=== PATIENT | female | born 1950 | race Caucasian/White ===

== ENCOUNTER → 2017-12-22 | Outpatient (CLI) | payer BC, MEDICARE ==
--- NOTE | 2017-12-22 13:27 | XR ---
Lumbosacral spine history: Left hip pain, pain down left leg 5 views of the lumbosacral spine There is a marked dextroscoliosis centered at L3. Vacuum phenomenon are present at L2-3, L3-4. There is multilevel spondylosis. No evident spondylolysis. Anterolisthesis grade 1 L4-5. Retrolisthesis gra de 1 L1-2. Loss of disc height present at the intervertebral levels. Sclerosis present in the posteri or elements of the lumbar spine. Bone mineralization is reduced. Vascular calcifications noted incide ntally in the aortoiliac distribution. IMPRESSION: Degenerative disc disease, scoliosis, facet arthropathy and spondylolisthesis.
--- NOTE | 2017-12-22 13:28 | XR ---
Left hip HISTORY: Left hip pain, sciatica 2 views of the left hip Some sclerosis present in the sacroiliac joints. Degenerative disc changes noted incidentally noted w ithin the lumbar spine. Bone mineralization is mildly reduced. Joint space, alignment are normal. No significant hypertrophic change in the left hip. IMPRESSION: Osteopenia. Additional findings above.
== END | disposition home or self-care (01) ==
LOC: RADXRYALE 12:56
PROVIDERS: ATTEND Internal Medicine
DX: M85.852 Other specified disorders of bone density and structure, left thigh (principal); M43.16 Spondylolisthesis, lumbar region; M51.36 Other intervertebral disc degeneration, lumbar region; M46.96 Unspecified inflammatory spondylopathy, lumbar region; M41.9 Scoliosis, unspecified
CPT/HCPCS: 72110; 73502

== ENCOUNTER → 2018-03-23 | Outpatient (CLI) | payer MEDICARE ==
[2018-03-23 13:33] VITALS: BP 133/72; PULSE 70; BMI 37.2
--- NOTE | 2018-03-23 14:02 | P.GSHP ---
History of Present Illness H&P Date: 03/23/18 The patient is a 67 year old white female status post a recent mammogram and was told she needed an appointment here. She does not feel any thing in her breast. No nipple discharge or changes. No history of trauma or infection. We do not have results of her mammogram. She has had mammotome biopsy of the right breast twice in the past. This was benign. The patient is status post bilateral mammogram report is obtained from 2017. This report reveals multiple clustered groups of microcalcifications of both breasts not present on prior mammograms from 2013. The patient does have postsurgical changes noted in the right breast. There are groups of calcifications that are indeterminate at this time. Cannot exclude multifocal disease involving the upper outer quadrant of both breasts. Calcifications in the left and right breast may need biopsy for histo logic diagnosis. Since multiple groups of calcifications are noted involving the lateral upper outer quadrant of both breast MRI has been recommended. Depending on results of MRI further recommendation to follow. Family History: 1. mother: lung cancer 2. brother: leukemia 3. paternal aunt: breast cancer at about 50 Hormonal History: menarche: 10 : 3, 2 children first at 34, breast fed no menopause: ANTHONY at 46 BCP: 10 years hormones: 2 years Past Medicl History: 1. Osteoarthritis 2. Diabetes 3. Glaucoma 4. Hypertension 5. High cholesterol 6. Hiatal hernia 7. Duodenal ulcer disease 8. History in the past of migraines Past surgical history: 1. 3 hernias 2. Hysterectomy 3. Fracture right leg Past medical history: Social History: smoke: no alcohol: no drugs: no - Constitutional Constitutional: Reports sweats, Denies chills, Denies fever - EENT Eyes: denies blurred vision, denies pain Ears: bilateral: decreased hearing, tinnitus Ears, nose, mouth and throat: Denies headache, Denies sore throat - Breasts Breasts: bilateral: as per HPI - Cardiovascular Cardiovascular: Reports high blood pressure - Respiratory Respiratory: Denies cough, Denies 7 - Gastrointestinal Comment: yeast infection in groin Gastrointestinal: Denies abdominal pain, Denies diarrhea, Denies nausea, Denies vomiting - Genitourinary (Female) Genitourinary: Denies dysuria, Denies hematuria - Musculoskeletal Comment: arthritis uses a walker and a palma Musculoskeletal: right: knee pain - Integumentary Comment: yeast infection groins Integumentary: Denies pruritus, Denies rash - Neurological Neurological: Denies numbness, Denies weakness - Psychiatric Psychiatric: Denies anxiety, Denies depression - Endocrine Comment: diabetic - Hematologic/Lymphatic Comment: none - Allergic/Immunologic Comment: none Past Medical History Smoking Status: Never smoker Surgical - Exam Vital Signs Pulse BP Pulse Ox 70 133/72 98 03/23/18 13:29 03/23/18 13:29 03/23/18 13:29 - General obese - Eyes normal ocular movement, no icteric - ENT no hearing loss, no congestion - Neck no masses, trachea midline - Respiratory normal respiratory effort, clear to auscultation - Cardiovascular Rhythm: regular Heart Sounds: normal: S1, S2 - Abdomen Abdomen: soft, non tender, no guarding, no rigid, no rebound - Integumentary histurism - Neurologic no disoriented, no combative - Psychiatric oriented to time, oriented to person, oriented to place, speech is normal, memory intact Breast examination: Right breast: Multi-positional exam no dominant masses or nodules of concern, nipple was initially inverted but then came back out again Right axilla: No adenopathy of concern Left breast: Multi-positional exam no dominant masses or nodules of concern Left axilla: No adenopathy of concern Results Impression: 1. Abnormal bilateral breast mammogram 2. Diabetes 3. Arthritis 4. Histurism 5. glaucoma 6. HTN 7. hiatal hernia Plan: 1. MRI of both breast, further recommendation to follow results 2. medical management of medical conditions cc: Dr. Gunn
== END | disposition home or self-care (01) ==
LOC: WWCWWP 13:06
PROVIDERS: ATTEND Surgery
DX: Z53.9 Procedure and treatment not carried out, unspecified reason (principal)

== ENCOUNTER → 2018-03-29 | Outpatient (CLI) | payer MEDICARE ==
--- NOTE | 2018-03-31 07:54 | BMR ---
EXAMINATION TYPE: MR breast BILAT wo/w con DATE OF EXAM: 03/31/2018 COMPARISON: Outside bilateral screening mammogram January 24, 2018 and outside bilateral diagnostic work up February 22, 2018 BI-RADS 4. HISTORY: Abnormal mamm, calcs seen in both breasts upper outer quadrant, no palpable lump, prev benig n biopsy rt breast CONTRAST: Multiplanar, multisequence images of the breasts were acquired utilizing 10 mL intravenous Gadavist g adolinium contrast. TECHNIQUE: A series of fat and water weighted images in the long and short axis views of both breasts are obtained in conjunction with dynamic contrast MRI with subtraction technique. Three-dimensional and additional postprocessing imaging is created on independent workstation and reviewed during offi cial interpretation of this study. FINDINGS: Scattered fibroglandular tissue is noted throughout both breasts. T2-weighted images show a few thin-walled small cysts bilaterally with larger thin-walled cyst noted posteriorly near chest wa ll in both breasts. Delayed images show no suspicious enhancing internal mammary adenopathy bilateral ly. There is moderate fairly symmetric glanular enhancement seen bilaterally There are prominent but subcentimeter benign-appearing lymph nodes in the bilateral axilla With regards to the right breast there is artifact from biopsy clip in the upper aspect. A few small well-defined foci of enhancement are seen bilaterally. Largest enhancing lesion is well-d efined in the upper inner quadrant of the right breast measuring 7 x 6 x 10 mm with dynamic postcontr ast images showing mixed enhancement with areas of uptake and washout. Follow-up advised. No suspicious nonmass-like enhancement is identified in the upper outer quadrants of either breast. N o suspicious skin thickening is seen. The chest wall is intact bilaterally. IMPRESSION: Small enhancing foci bilaterally, would at least advised pursued or sampling of largest m easured lesion in the right breast upper inner quadrant anterior to middle depth. BI-RADS 4 suspicious abnormality right breast. BI-RADS 2 benign findings left breast. Recommendation: Attempted targeted ultrasound follow-up to assess for solid lesion at area of MRI con cern. Negative MRI would not prevent or differ sampling of suspicious group of microcalcifications on mammogram if felt appropriate.
== END | disposition home or self-care (01) ==
LOC: RADMRIMAIN 14:49
PROVIDERS: ATTEND Surgery
DX: R92.8 Other abnormal and inconclusive findings on diagnostic imaging of breast (principal)
CPT/HCPCS: 82565; 36415; 0159T; C8908; A9581; 77059

== ENCOUNTER → 2018-04-07 | Outpatient (CLI) | payer MEDICARE ==
[2018-04-07 09:55] VITALS: BP 162/85; PULSE 81; BMI 37.2
--- NOTE | 2018-04-07 10:38 | P.PN ---
Progress Note - Text Progress Note Date: 04/07/18 The patient is a 67-year-old white female status post a recent mammogram in which she was noted to have multiple areas of calcification in both breasts not present on prior mammograms from 2013. Secondary to these findings it was recommended she undergo bilateral breast MRI. This was performed on . Findings on the MRI revealed small enhancing foci bilaterally and it was advised that the largest which was in the right breast in the upper inner quadrant be sampled if possible via ultrasound-guided core biopsy. Radiographs were reviewed with the radiologist Dr. Bower. After review of the radiographs and the MRI the recommendation was that the patient undergo stereotactic core biopsy of 2 automotive sales representative areas of microcalcifications one in the upper outer quadrant of the right breast and one in the upper quadrant of the left breast. Additionally an ultrasound will be performed of the upper inner quadrant of the right breast and if any lesion of concern is identified it will be sampled via ultrasound-guided core biopsy. Depending on results of this further recommendation to follow. Risks and benefits of the procedure as well as alternatives have been discussed with the patient and her daughter and they wish to proceed. Impression: 1. Mammogram revealed multiple areas of microcalcifications in both breast 2. MRI with enhancing lesions bilaterally the largest in the right breast in the upper inner quadrant area for which attempted ultrasound-guided biopsy is recommended 3. Depending on results of biopsy further recommendation to follow cc: Dr. Gunn
== END ==
LOC: WWCWWP 09:24
PROVIDERS: ATTEND Surgery
DX: Z53.9 Procedure and treatment not carried out, unspecified reason (principal)

== ENCOUNTER → 2018-05-04 | Day surgery (SDC) | payer MEDICARE ==
[2018-05-04 09:48] VITALS: RESP 16; BMI 36.7
--- NOTE | 2018-05-04 11:39 | USB ---
Reason for exam: clinical finding. History: Patient is postmenopausal. Family history of breast cancer in paternal aunt. Benign stereotactic core biopsy of the right breast, November 06, 2001. Benign stereotactic core biopsy of the right breast, October 17, 2000. 2 core biopsies of the right breast. US Breast Limited BILAT Right limited breast ultrasound including focal area of concern, retroareolar and axilla demonstrates a 0.2 x 0.2 x 0.4cm calcifications at 11 o'clock, a 0.4 x 0.3 x 0.2cm calcifications at 11 o'clock, a 0.2 x 0.21 x 0.4cm calcification at 12o'clock, a 0.3 x 0.3 x 0.3cm lesion too small to characterize at 1 o'clock that can be reassessed in 6 months and a 0.3 x 0.3 x 0.3cm lesion too small to characterize at 2 o'clock that can be reassessed in 6 months. Left limited breast ultrasound including focal area of concern, retroareolar and axilla demonstrates a 0.5 x 0.3 x 0.5cm probable lipoma at 2 o'clock at the palpable site. As the nurse reports a firm area, 6 month follow up recommended. These results were verbally communicated with the patient and result sheet given to the patient on 05/04/18. ASSESSMENT: Suspicious, BI-RAD 4 RECOMMENDATION: Stereotactic core biopsy of both breasts.
[2018-05-04 14:54] VITALS: BP 127/85; PULSE 78; TEMP 97.8
--- NOTE | 2018-05-04 16:22 | P.OP ---
Date of Procedure: 05/04/18 Preoperative Diagnosis: Bilateral mammographic microcalcifications of concern, new from prior mammogram most recently which was performed in 2013 Postoperative Diagnosis: same Procedure(s) Performed: Bilateral stereotactic core breast biopsy, 2 areas in the right breast, approximately 1-2 O Clock, upper inner quadrant; and second lesion approximately 10 O Clock, upper outer quadrant. One area in the left breast in the upper-outer quadrant. Anesthesia: local Surgeon: Erika Salazar Estimated Blood Loss (ml): 2 Pathology: other (breast tissue) Condition: stable Disposition: same day Indications for Procedure: The patient is a 67-year-old white female who presented with a mammographic abnormality on outside screening mammograms performed 01/24/2018. Outside bilateral diagnostic workup was performed and the patient was noted to have abnormal calcifications seen in both breasts which were new from her most recent prior mammogram which was in 2013. These were considered BIRADS 4. At our institution the radiographs were reviewed and secondary to the multiple calcifications it was recommended she undergo bilateral breast MRI. The bilateral breast MRI revealed a suspicious abnormality in the right breast consistent with one of the areas of microcalcifications and possibly a small nodule; and benign findings in the left breast. An attempt at targeted ultrasound to evaluate the area of possible nodularity and increased uptake seen on the MRI on the right breast was performed. We could not definitively see this on ultrasound to correspond to the area which was noted on mammogram and MRI. After review with the radiologist it was therefore recommended that the patient undergo bilateral stereotactic biopsy of the breast with 2 areas being sampled in the right breast. Those to be sampled in the right breast included the 1 to 2 o'clock position which was consistent with a area of increased uptake on MRI at the 1 to 2 o'clock position, and the 10 o'clock position, this was felt corresponded to a more lateral area in the upper outer quadrant area of the right breast. In the left breast after review of the mammogram, MRI, and ultrasound it was recommended that she undergo stereotactic core biopsy of calcifications in the upper outer quadrant region of the left breast. The patient was evaluated prior to the procedure. Physical examination did not reveal any dominant masses or nodules of concern in either breast. She was not noted to have any axillary adenopathy of concern on either side. The risks and benefits of the procedure including bleeding, infection, and reaction to the anesthetic and possible inability to sample the correct area or migration of the clip were discussed with the patient. Alternatives which would include watchful waiting or open biopsy were considered but not recommended. The patient agreed to bilateral stereotactic core biopsy. The patient was recommended to have two areas of concern biopsied in the right breast, and one area in the left breast. Operative Findings: Bilateral breast with multiple new microcalcifications, a small area of nodularity not well documented on ultrasound in the right breast; after review with radiology bilateral breast stero-biopsy recommended, with two areas being sampled in the right breast. Description of Procedure: The patient was taken to the stereotactic core biopsy suite. The patient was positioned on a low rad prone biopsy table. The right breast was approached initially. Two areas of concern were to be sampled in the right breast. The first area was identified using a cranial caudal (CC) manufacturing recruiter view. The first area was felt to be at the 1 to 2 o'clock position of the breast. There was an area of small nodularity associated with the area of microcalcifications which was not positively identified on ultrasound, but noted to most likely correlate with an area of increased uptake/suspicion on the MRI. The initial site sampled was in the 1 to 2 o'clock position of the right breast. The approach was a cranial caudal (CC) from above. The skin was prepped using Betadine. One percent lidocaine without epinephrine/but added bicarbonate was used to anesthetize the area of concern. Approximately 10 mL were utilized. The lesion was clearly identified on a manufacturing recruiter film. A stereo pair of the area was obtained. A 9-gauge vacuum-assisted rotating core biopsy needle was driven to the correct coordinates. Pre-fire films were obtained. On these it was noted that the needle was in the correct location and post-fire films were then obtained. The correct location was again confirmed. The 9- gauge vacuum assisted rotating core biopsy needle was used to obtain approximately 12 specimens. Radiograph of the specimen revealed the calcifications of concern had been sampled. A Secure-Roly Top-button buttonhole marker was placed and confirmed to be in the correct location using a stereopair radiograph. There were no immediate post procedure complications related to this. Our target accuracy was felt to be excellent. The biopsy marker was felt to be in the correct location. The specimen will be sent to pathology. The patient tolerated this portion of the procedure in stable condition. The second area on the right breast was then approached. The second area in the right breast was then approached. This was at the 10 o'clock position. The lesion was first identified on a cranial caudal manufacturing recruiter film. Following this a stereo pair was obtained. The approach used was a cranial caudal (CC) from above. Again the skin was prepped using Betadine. One percent lidocaine without epinephrine with addition of bicarbonate was used to anesthetize the area of concern. Approximately 10 mL were utilized. The lesion was clearly identified on the manufacturing recruiter film. A stereo pair was obtained and the needle was driven to the correct coordinates. Pre-fire films were obtained. On these it was noted that the needle was in the correct location and the needle was fired. Post-fire films were then obtained and again the correct location was confirmed. The 9-gauge vacuum-assisted rotating core biopsy needle was used to obtain approximately 12 specimens. Radiograph of the specimen revealed the calcifications of concern had been sampled. A Tri-Roly, bow-tie clip was placed. There were no immediate postoperative complications. The specimen was clearly labeled and sent to pathology. The patient tolerated this portion of the procedure in stable condition. The left breast was approached on the stereotactic core biopsy table. The area of concern in the left breast was located in the upper outer quadrant region. A lateral to medial approach was utilized to sample this area. The area was identified on a manufacturing recruiter film. Following this a stereo pair of the area was obtained. The skin was prepped using Betadine. One percent lidocaine without epinephrine and added bicarbonate was used to anesthetize the area. Approximately 10 mL were utilized. The needle was driven to the correct coordinates. A pre-fire radiograph revealed the needle was in the correct location. The needle was then fired and post-fire radiographs revealed the needle was in the correct location. The sampling needle was a 9-gauge vacuum- assisted rotating core biopsy needle. Approximately 12 specimens were obtained. Radiograph of the specimen revealed the area of concern had been sampled, and contained microcalcifications. A Secure Roly Top-button buttonhole marker was placed. This was confirmed to be in the correct location by obtaining stereo radiographs of the breast. There were no immediate postoperative complications. The patient was given an appointment to follow-up with Dr. Aneudy Oliveros in 1 week. All specimens were clearly labeled and sent to pathology.
--- NOTE | 2018-05-04 16:29 | P.PN ---
Progress Note - Text Progress Note Date: 05/04/18 The patient's case and radiographs have again been reviewed in detail with the radiologist. At this point if the patient's stereotactic core biopsies all come back negative for cancer the recommendation will be repeat bilateral mammogram and ultrasound in 6 months with physician exam at that time. If they come back positive for cancer in the right breast because there were 2 areas of change seen on ultrasound and we were not certain which one we sampled by stereo biopsy we would repeat an ultrasound to see which area we had sampled and if further ultrasound core biopsy would be indicated.
--- NOTE | 2018-05-04 18:35 | MM ---
EXAMINATION TYPE: MG stereo VAD BIOPSY RIGHT BREAST (2 SITES), MG stereo VAD BIOPSY LEFT BREAST (ONE SITE) DATE OF EXAM: 05/04/2018 COMPARISON: Ultrasound today, mammogram 02/22/2018, and MRI 03/29/2018 CLINICAL HISTORY: 67-year-old female abnormal mammogram. Patient with extensive new calcifications as compared to the prior 2013 exam, right greater than left, as well as dominant enhancing lesion medially in the right breast on MRI. Second Look ultrasound shows no corresponding abnormality. TECHNIQUE: Stereotactic guided core biopsy bilateral breasts, 2 sites on the right and one site on the left. FINDINGS: The procedure of stereotactic guided core biopsy was explained to the patient. Benefits, alternatives, and risks were discussed. An informed consent was then obtained. SITE A - RIGHT - UIQ focal asymmetry - The shortness pathway for biopsy was chosen. Shortness pathway was a superior approach. I performed the localization , then surgeon, Dr. Aneudy Oliveros performed the remainder of the procedure. A vacuum assisted biopsy gun was used to obtain multiple core samples. A top- hat Securemark clip was left at the biopsy site. SITE B - RIGHT - 11:00 traffic workforce representative calcifications - The shortness pathway for biopsy was chosen. Shortness pathway was a superior approach. I performed the localization, then surgeon, Dr. Aneudy Oliveros performed the remainder of the procedure. A vacuum assisted biopsy gun was used to obtain multiple core samples. A bowtie Trimark clip was left at the biopsy site. SITE C - LEFT - Lateral traffic workforce representative calcifications - The shortness pathway for biopsy was chosen. Shortness pathway was a lateral approach. I performed the localization, then surgeon, Dr. Aneudy Oliveros performed the remainder of the procedure. A vacuum assisted biopsy gun was used to obtain multiple core samples. A top-hat Securemark clip was left at the biopsy site. The patient tolerated the procedure well without any immediate complication. The patient was kept in the radiology department for short stay after the procedure and then discharged home in stable condition. Targeted calcifications are identified in specimen mammogram. On the right, post biopsy mammogram shows the clips to appear in satisfactory position relative to the targeted areas of concern on the preprocedure images. On the left, there is approximately 2 cm of anterior and lateral clip migration. IMPRESSION: 1. SUCCESSFUL, UNCOMPLICATED STEREOTACTIC GUIDED CORE BIOPSY OF: (A) MEDIAL FOCAL ASYMMETRY RIGHT BREAST (CORRESPONDING TO AN ENHANCING LESION ON MRI), (B) COMMUNITY DEVELOPMENT DIRECTOR RIGHT BREAST CALCIFICATIONS, AND (C) COMMUNITY DEVELOPMENT DIRECTOR LEFT BREAST CALCIFICATIONS. FULL PATHOLOGY RESULTS TO FOLLOW. RECOMMENDATION: 1. Follow-up pathology results. 2. Six-month follow-up right breast ultrasound for reassessment of the too small to characterize 1:00 and 2:00 lesions. 3. Six-month follow-up left breast ultrasound for reassessment of the probable 2 :00 lipoma though the nurse reports that this area is firm on palpation. Pathology Results: Benign A. RIGHT BREAST, SITE A, STEREOTACTIC CORE BIOPSY: Nodular fat necrosis with associated inflammation, fibrosis, histiocytes and calcifications. Negative for malignancy. B. RIGHT BREAST, SITE B, STEREOTACTIC CORE BIOPSY: Nodular fat necrosis with associated calcifications and fibrosis. Negative for malignancy. C. LEFT BREAST, STEREOTACTIC CORE BIOPSY: Fat necrosis with associated inflammation, fibrosis and histiocytes. Background fibrocystic changes including fibrosis and focal apocrine metaplasia. Negative for malignancy. Recommendation Follow up mammogram and ultrasound (ultrasound for attention to the above mentioned findings including a nurse palpated area on the left) of both breasts in 6 months. KEYOND
== END ==
LOC: RADMAMWWP 09:27 → EDSTATUS 10:20
PROVIDERS: ATTEND Surgery
DX: N64.1 Fat necrosis of breast (principal); N60.31 Fibrosclerosis of right breast; N60.32 Fibrosclerosis of left breast; R92.1 Mammographic calcification found on diagnostic imaging of breast; N60.82 Other benign mammary dysplasias of left breast
CPT/HCPCS: 88305; 19081; 19082 ×2; 76642; A4648; J2001

== ENCOUNTER → 2018-05-11 | Outpatient (CLI) | payer MEDICARE ==
[2018-05-11 11:25] VITALS: BP 113/76; PULSE 67; RESP 18; TEMP 98.2; BMI 37.2
--- NOTE | 2018-05-11 11:42 | P.PN ---
Subjective Progress Note Date: 05/11/18 Principal diagnosis: Status post stereotactic core biopsy of both breasts The patient is a 67-year-old white female who is status post her tactic core biopsy of both breasts. This was performed on [id number]. 2 sites were biopsied in the right breast and one in the left. On the right breast she was noted to have nodular fat necrosis associated with inflammation at site a and nodular fat necrosis associated with calcifications and fibrosis at site be. Both were negative for malignancy. At the left breast the patient was noted at fat necrosis with associated inflammation negative for malignancy. The patient states that she has some slight nodularity at the sites of the biopsies. She is not complaining of pain at the breast at this time. No evidence of any infection. No fever or chills. Objective - Vital Signs Vital signs: Vital Signs Temp 98.2 F 05/11/18 11:21 Pulse 67 05/11/18 11:21 Resp 18 05/11/18 11:21 BP 113/76 05/11/18 11:21 Pulse Ox 95 05/11/18 11:21 Intake & Output 05/10/18 05/11/18 05/11/18 18:59 06:59 18:59 Weight 98.43 kg - Exam BMI 37.2 - Constitutional General appearance: Present: obese - EENT Eyes: Present: EOMI ENT: Present: hearing grossly normal - Neck Neck: Present: normal ROM - Respiratory Respiratory: bilateral: CTA - Cardiovascular Rhythm: regular Heart sounds: normal: S1, S2 - Gastrointestinal General gastrointestinal: Present: soft - Integumentary Integumentary Comment(s): Breast examination: Right breast: Puncture sites clean and dry mild ecchymosis small hematomas at the biopsy sites Left breast: Puncture site clean and dry mild ecchymosis small hematoma at the biopsy site Assessment and Plan Assessment: Impression: 1. Status post bilateral breast biopsy via stereotactic core biopsy all findings are benign 2. Degenerative disc disease/arthritis Plan: 1. Repeat bilateral mammogram in 6 months time with physician exam at that time 2. Medical management of medical conditions CC: Dr. Gunn
== END | disposition home or self-care (01) ==
LOC: WWCWWP 10:31
PROVIDERS: ATTEND Surgery
DX: Z53.9 Procedure and treatment not carried out, unspecified reason (principal)

== ENCOUNTER → 2018-10-20 | Outpatient (CLI) | payer MEDICARE ==
--- NOTE | 2018-10-20 11:52 | MM ---
Reason for exam: follow-up at short interval from prior study. Last mammogram was performed 4 years and 10 months ago. History: Patient is postmenopausal. Family history of breast cancer in paternal aunt. Benign MG stereo VAD BX addl LT of the left breast, May 04, 2018. Benign MG stereo VAD BX addl RT of the right breast, May 04, 2018. Benign MG stereo VAD BX RT of the right breast, May 04, 2018. Benign stereotactic core biopsy of the right breast, November 06, 2001. Benign stereotactic core biopsy of the right breast, October 17, 2000. 2 core biopsies of the right breast. Physical Findings: Nurse did not find any significant physical abnormalities on exam. MG 3D Diag Mammo W/Cad KRISTINE Bilateral CC and MLO view(s) were taken. Prior study comparison: January 24, 2018, mammogram. December 14, 2013, bilateral MG screening mammo w CAD. There are scattered fibroglandular densities. No significant new findings when compared with previous films. These results were verbally communicated with the patient and result sheet given to the patient on 10/20/18. ASSESSMENT: Benign, BI-RAD 2 RECOMMENDATION: Routine screening mammogram of both breasts in 6 months. Back on schedule for April 2019.
--- NOTE | 2018-10-20 11:55 | USB ---
Reason for exam: follow-up at short interval from prior study. History: Patient is postmenopausal. Family history of breast cancer in paternal aunt. Benign MG stereo VAD BX addl LT of the left breast, May 04, 2018. Benign MG stereo VAD BX addl RT of the right breast, May 04, 2018. Benign MG stereo VAD BX RT of the right breast, May 04, 2018. Benign stereotactic core biopsy of the right breast, November 06, 2001. Benign stereotactic core biopsy of the right breast, October 17, 2000. 2 core biopsies of the right breast. US Breast BILAT Left complete breast ultrasound includes all four quadrants, the retroareolar region and axilla. Finding demonstrates no cystic or solid lesion seen. Right complete breast ultrasound includes all four quadrants, the retroareolar region and axilla. Finding demonstrates a 0.4 x 0.4 x 0.4cm hypoechoic, calcified lesion at 12 o'clock, a 0.3 x 0.3 x 0.3cm lesion too small to characterize at 1 o'clock, a 0.3 x 0.3 x 0.3cm lesion too small to characterize at 2 o'clock, a 0.5 x 0.3 x 0.3cm lesion too small to characterize at 7 o'clock and calcifications at 11 o'clock. These results were verbally communicated with the patient and result sheet given to the patient on 10/20/18. ASSESSMENT: Benign, BI-RAD 2 RECOMMENDATION: Routine screening mammogram of both breasts in 6 months. Back on schedule for April 2019.
== END | disposition home or self-care (01) ==
LOC: RADUSWWP 09:23
PROVIDERS: ATTEND Surgery
DX: R92.8 Other abnormal and inconclusive findings on diagnostic imaging of breast (principal)
CPT/HCPCS: 77066; 76641; G0279; 77062

== ENCOUNTER → 2018-10-26 | Outpatient (CLI) | payer MEDICARE ==
[2018-10-26 10:00] VITALS: BP 120/79; PULSE 70; RESP 16; TEMP 97.5; BMI 36.7
--- NOTE | 2018-10-26 10:32 | P.PN ---
Subjective Progress Note Date: 10/26/18 Principal diagnosis: 67-year-old white female status post bilateral breast stereotactic core biopsies in April 2018. All 3 sites were consistent with fat necrosis. The patient has had a repeat bilateral mammogram and bilateral ultrasound performed . Findings were felt to be benign and repeat screening of both breast in 6 months time was recommended. On the ultrasound she was noted on the left breast have no cystic or solid lesions, and the right breast she was noted to have a 0.4 cm calcified lesion at 12:00, a 0.3 cm lesion too small to characterize at 1:00, a 0.3 cm lesion too small to characterize at 2:00, and a 0.5 x 0.3 cm lesion too small to characterize at 7:00 and calcifications at 11:00. These were felt to be benign and again repeat bilateral mammogram and ultrasound in 6 months recommended. On her mammogram which was 3-D no significant new findings when compared to prior films benign BIRADS 2. The patient does not complain of any changes in her breast. The patient does not complain of any masses lumps nipple discharge or recent infection or trauma to the breast. Family history: 1. Mother: Lung cancer 2: Brother: Leukemia 3: Paternal aunt: Breast cancer at about 50 Past medical history: Osteoarthritis Diabetes Glaucoma Hypertension High cholesterol Hiatal hernia Duodenal ulcer disease Past history of migraines Past surgical history: 1. 3 hernias 2. Hysterectomy 3. Fracture right leg Social history: Smoke: Negative Alcohol: Negative Drugs: Negative Review of systems: HEENT: Tinnitus, wears glasses Lungs: Negative Heart: Congestive heart failure GI: Ulcer disease : Negative Musculoskeletal: Arthritis Psychiatric: Negative Objective - Vital Signs Vital signs: Vital Signs Temp 97.5 F L 10/26/18 09:55 Pulse 70 10/26/18 09:55 Resp 16 10/26/18 09:55 BP 120/79 10/26/18 09:55 Pulse Ox 94 L 10/26/18 09:55 Intake & Output 10/25/18 10/26/18 10/26/18 18:59 06:59 18:59 Weight 97.069 kg - Exam BMI 36.7 - Constitutional Constitutional Comment(s): hirsturism General appearance: Present: obese - EENT Eyes: Present: EOMI ENT: Present: hearing grossly normal - Neck Neck: Present: normal ROM - Respiratory Respiratory: bilateral: CTA - Cardiovascular Rhythm: regular Heart sounds: normal: S1, S2 - Gastrointestinal General gastrointestinal: Present: soft - Integumentary Integumentary Comment(s): hirstuism Integumentary: Present: normal turgor - Musculoskeletal Musculoskeletal Comment(s): uses a walker - Additional findings Additional findings: Breast examination: Right breast: Multi-positional exam fibrocystic changes, no dominant masses or nodules of concern Right axilla: No adenopathy of concern Left breast: Multiple positional exam no dominant masses or nodules of concern Left axilla: No adenopathy of concern Assessment and Plan Assessment: impression: 1. Fibrocystic changes in the breast 2. Ultrasound changes in the right breast 3. family history of cancer 4. obesity 5. arthritis in back 6. HTN 7. diabetes 8. hirstusm 9. no evidence of any breast cancer at this time 10. glaucoma Plan: 1. Repeat bilateral mammogram and ultrasound in 6 months with physician exam at that time 2. Medical management of medical conditions 3. We have discussed the hirstuism and an at this time the patient is interested in any further workup Cc: Dr. Gunn
== END | disposition home or self-care (01) ==
LOC: WWCWWP 09:23
PROVIDERS: ATTEND Surgery
DX: Z53.9 Procedure and treatment not carried out, unspecified reason (principal)

== ENCOUNTER → 2019-04-30 | Outpatient (CLI) | payer MEDICARE ==
--- NOTE | 2019-04-30 09:54 | MM ---
Reason for exam: follow-up at short interval from prior study. Last mammogram was performed 6 months ago. History: Patient is postmenopausal. Family history of breast cancer in paternal aunt. Benign MG stereo VAD BX addl LT of the left breast, May 04, 2018. Benign MG stereo VAD BX addl RT of the right breast, May 04, 2018. Benign MG stereo VAD BX RT of the right breast, May 04, 2018. Benign stereotactic core biopsy of the right breast, November 06, 2001. Benign stereotactic core biopsy of the right breast, October 17, 2000. 2 core biopsies of the right breast. Physical Findings: Nurse did not find any significant physical abnormalities on exam. MG 3D Diag Mammo W/Cad KRISTINE Bilateral CC and MLO view(s) were taken. Prior study comparison: October 20, 2018, bilateral MG 3d diag mammo w/cad KRISTINE. January 24, 2018, mammogram. The breast tissue is heterogeneously dense. This may lower the sensitivity of mammography. There are two oval circumscribed anterior depth left upper outer quadrant masses, both 4mm. Ultrasound will be performed. Benign appearing bilateral calcifications. Post biopsy change on right x 2, both improved. These results were verbally communicated with the patient and result sheet given to the patient on 04/30/19. ASSESSMENT: Incomplete: need additional imaging evaluation, BI-RAD 0 RECOMMENDATION: Ultrasound of both breasts. (left upper outer quadrant, right 12-7 o'clock follow up)
--- NOTE | 2019-04-30 09:58 | USB ---
Reason for exam: additional evaluation requested from prior study. History: Patient is postmenopausal. Family history of breast cancer in paternal aunt. Benign MG stereo VAD BX addl LT of the left breast, May 04, 2018. Benign MG stereo VAD BX addl RT of the right breast, May 04, 2018. Benign MG stereo VAD BX RT of the right breast, May 04, 2018. Benign stereotactic core biopsy of the right breast, November 06, 2001. Benign stereotactic core biopsy of the right breast, October 17, 2000. 2 core biopsies of the right breast. US Breast Limited BILAT Right limited breast ultrasound including focal area of concern, retroareolar and axilla demonstrates a 0.4 x 0.2 x 0.4cm oval, hypoechoic, calcified, benign lesion at 12 o'clock and a 0.2 x 0.4 x 0.3cm oval lesion too small to characterize at 2 o'clock, cystic prior at 1 o'clock measured 0.3 x 0.3 x 0.3cm. Left limited breast ultrasound including focal area of concern, retroareolar and axilla demonstrates ductal ectasia corresponds to mammographic findings. These results were verbally communicated with the patient and result sheet given to the patient on 04/30/19. ASSESSMENT: Benign, BI-RAD 2 RECOMMENDATION: Routine screening mammogram of both breasts in 1 year.
== END | disposition home or self-care (01) ==
LOC: RADMAMWWP 07:27
PROVIDERS: ATTEND Surgery
DX: R92.8 Other abnormal and inconclusive findings on diagnostic imaging of breast (principal)
CPT/HCPCS: 77066; 76642; G0279; 77062

== ENCOUNTER → 2019-05-18 | Outpatient (CLI) | payer MEDICARE ==
[2019-05-18 10:58] VITALS: BP 137/91; RESP 18; TEMP 97.8; BMI 36.2
--- NOTE | 2019-05-18 11:34 | P.PN ---
Subjective Progress Note Date: 05/18/19 67-year-old white female status post bilateral breast stereotactic core biopsies in April 2018. All 3 sites were consistent with fat necrosis. The patient has had a repeat bilateral mammogram and bilateral ultrasound performed on. Findings were felt to be benign and repeat screening of both breast in 6 months time was recommended. The patient is not complaining of any masses pain lungs are nodules in her breast. She had a bilateral mammogram performed on [id number]. This revealed to have a circumscribed anterior depth left upper outer quadrant masses. An ultrasound was performed of both breast on the same date. Ultrasound revealed cystic lesions in the right breast no lesions of concern in the left breast and repeat bilateral mammogram in 1 year was recommended. Drinks caffeine daily in the form of diet Pepsi. She does not smoke, she is exposed to secondhand smoke. She does not eat much chocolate. Family History: 1. Mother: Lung cancer 2: Brother: Leukemia 3: Paternal aunt: Breast cancer at about 50 4. maternal grandfather: stomach cancer 5. paternal grandfather: stomach cancer Past medical history: Osteoarthritis Diabetes Glaucoma Hypertension High cholesterol Hiatal hernia Duodenal ulcer disease Past history of migraines Past surgical history: 1. 3 hernias 2. Hysterectomy 3. Fracture right leg 4. chips removed left ankle Social history: Smoke: Negative Alcohol: Negative Drugs: Negative Review of systems: HEENT: Tinnitus, wears glasses Lungs: Negative Heart: Congestive heart failure GI: Ulcer disease : Negative Musculoskeletal: Arthritis neuroogic: right leg weak Psychiatric: Negative hematologic: baby aspirin Objective - Vital Signs Vital signs: Vital Signs Temp 97.8 F 05/18/19 10:55 Pulse Resp 18 05/18/19 10:55 BP 137/91 05/18/19 10:55 Pulse Ox 95 05/18/19 10:55 Intake & Output 05/17/19 05/18/19 05/18/19 18:59 06:59 18:59 Weight 95.708 kg - Exam BMI 36.2 - Constitutional General appearance: Present: obese - EENT Eyes: Present: EOMI ENT: Present: hearing grossly normal - Neck Details: no adenopathy of concern Neck: Present: normal ROM - Respiratory Details: normal effort Respiratory: bilateral: CTA - Cardiovascular Rhythm: regular Heart sounds: normal: S1, S2 - Gastrointestinal Gastrointestinal Comment(s): no organomegaly liver/spleen not enlarged bowel sounds normal General gastrointestinal: Present: soft - Integumentary Integumentary Comment(s): Scars right breast well-healed from prior biopsy Integumentary: Present: normal turgor - Musculoskeletal Musculoskeletal Comment(s): kyphosis, affecting gait, uses a walker - Psychiatric Psychiatric: Present: A&O x's 3, appropriate affect, intact judgment & insight - Additional findings Additional findings: Breast examination: Right breast: Ptotic, fibrocystic changes, no dominant masses or nodules of concern, nipple intermittently inverts Right axilla: No adenopathy of concern Left breast: exam no dominant masses or nodules of concern, fibrocystic changes, nipple no pathology noted discharge Left axilla: No adenopathy of concern Assessment and Plan Assessment: Impression: 1. Fibrocystic changes bilateral breast/ drinks caffeine and is exposed to secondhand smoke 2. Abnormal mammogram resulting in ultrasound 3. Family history of cancer 4. Arthritis and back causing difficulty with ambulation, and limiting ability to do examination 5. Hypertension 6. Diabetes 7. No evidence of any breast cancer at this time 8. BMI 36.2 9. right breast nipple inversion 10. Nodular fat necrosis" biopsies on [id number] Plan: 1. Patient to follow right nipple inversion if this becomes persistent and she should call us sooner 2. Bilateral mammogram in 1 year 3. counselled on affects of nicotine, caffeine, and theophylline on fibrocystic disease We have discussed the causes of nipple inversion and what the patient should watch for. Cc: Dr. Gunn
== END | disposition home or self-care (01) ==
LOC: WWCWWP 09:44
PROVIDERS: ATTEND Surgery
DX: Z53.9 Procedure and treatment not carried out, unspecified reason (principal)

== ENCOUNTER → 2019-12-25 | Outpatient (CLI) | payer MEDICARE ==
[2019-12-25 10:30] LABS: Basophils % (A) 1 %; Eosinophils # (A) 0.1 k/uL (0-0.7); Eosinophils % (A) 2 %; HCT 42.9 % (34.0-46.0); HGB 13.2 gm/dL (11.4-16.0); Lymphocytes # (A) 1.1 k/uL (1.0-4.8); Lymphocytes % (A) 21 %; MCH 30.2 pg (25.0-35.0); MCHC 30.8 g/dL (31.0-37.0); MCV 98.2 fL (80.0-100.0); Mean Platelet Volume 7.6; Monocytes # (A) 0.3 k/uL (0-1.0); Monocytes % (A) 5 %; Neutrophils # (A) 3.6 k/uL (1.3-7.7); Neutrophils % (A) 68 %; Platelet Count 287 k/uL (150-450); RBC 4.36 m/uL (3.80-5.40); RDW 14.3 % (11.5-15.5); WBC 5.3 k/uL (3.8-10.6)
[2019-12-25 10:47] LABS: Appearance,Urine Clear (Clear); Bilirubin,Urine Negative (Negative); Blood,Urine Negative (Negative); Color,Urine Yellow; Glucose,Urine (UA) Negative (Negative); Ketones,Urine Negative (Negative); Leukocyte Esterase,Urine Negative (Negative); Nitrite,Urine Negative (Negative); PH, Urine 7.5 (5.0-8.0); Protein,Urine Trace (Negative); Specific Gravity,Urine 1.015 (1.001-1.035); Urobilinogen,Urine <2.0 mg/dL (<2.0)
[2019-12-25 10:56] LABS: Partial Thromboplastin Time 22.6 sec (22.0-30.0)
[2019-12-25 10:57] LABS: African American GFR (CKD) >90 (>60 ml/min/1.73 sqM); Anion Gap 8 mmol/L; Blood Urea Nitrogen 10 mg/dL (7-17); Carbon Dioxide 25 mmol/L (22-30); Chloride 105 mmol/L (98-107); Glucose 147 mg/dL (74-99); Non-African American GFR(CKD) 87 (>60 ml/min/1.73 sqM); Potassium 4.4 mmol/L (3.5-5.1); Sodium 138 mmol/L (137-145)
--- NOTE | 2019-12-25 14:36 | XR ---
EXAMINATION TYPE: XR chest 2V DATE OF EXAM: 12/25/2019 COMPARISON: Prior chest CT from outside institution 12/12/2019 and chest x-ray 11/28/2019 from outside institution HISTORY: Presurgical testing TECHNIQUE: Frontal and lateral views of the chest are obtained. FINDINGS: Blunting of the right costophrenic angle, increased attenuation at the right lung base is a stable finding compared to CT, there may be loculated fluid, there is associated atelectatic change . The heart is borderline enlarged. Prominence of the pulmonary artery may be indicative of pulmonary artery hypertension. Aorta is dense. There are old healed left-sided rib fractures. IMPRESSION: Findings are similar to chest CT, possible loculated effusion, atelectasis, findings imp roved compared to prior chest x-ray. Borderline heart size, possible pulmonary artery hypertension.
== END | disposition home or self-care (01) ==
LOC: LABPAT 08:57
PROVIDERS: ATTEND Thoracic Surgery (Cardiothoracic Vascular Surgery)
DX: Z01.818 Encounter for other preprocedural examination (principal); E11.9 Type 2 diabetes mellitus without complications; J94.8 Other specified pleural conditions; Z51.81 Encounter for therapeutic drug level monitoring; Z79.01 Long term (current) use of anticoagulants; R35.0 Frequency of micturition
CPT/HCPCS: 36415; 71046; 80051; 81003; 82565; 82947; 84520; 85025; 85610; 85730; 87077; 87086; 87186; 93005

== ENCOUNTER 2019-12-27 07:31 | Inpatient (IN) | payer MEDICARE ==
[2019-12-25 14:35] VITALS: BMI 37.8
[~2019-12-27 07:31] MED LIST: DEXAMETHASONE SOD PHOSPHATE 10 MG/ML 1 ML VIAL IV ONE; LACTATED RINGERS 1,000 ML IV SCH; ONDANSETRON 4 MG/2 ML VIAL IVP ONE
[2019-12-27 08:19] LABS: Glucose,Whole Blood 152 mg/dL (75-99)
[2019-12-27] MEDS ORDERED: MIDAZOLAM 2 MG/2 ML VIAL IVP ONE (09:00)
--- NOTE | 2019-12-27 09:20 | P.CNPUL ---
History of Present Illness Consult date: 12/27/19 Reason for consult: dyspnea, chest pain, pleural effusion Chief complaint: Ongoing shortness of breath History of present illness: Patient is a 69-year-old well-known to me with a remote history of smoking in the past patient was admitted initially at [facility] with the finding suggestive of the pneumonia along with large parapneumonic effusion on the right side, patient had the thoracentesis is an 2 L of fluid were removed, with appearance of hemorrhagic fluid, pleural fluid was exudative with negative cytology cultures were negative, subsequent ultrasound of the chest postthoracentesis revealed loculation on the right side bends moderate residual pleural effusion, patient other significant lab was elevated CEA 125, but she is status post total abdominal hysterectomy, due to loculated fluid on the light side had a high index of suspicion for neoplastic process patient is scheduled for thoracoscopic pleural biopsy with VATS procedure and lysis of loculation on the right side with removal of residual fluid Review of Systems All systems: negative Past Medical History Past Medical History: Heart Failure, Diabetes Mellitus, Hyperlipidemia, Hypertension, Osteoarthritis (OA) Additional Past Medical History / Comment(s): Glaucoma, History of Any Multi-Drug Resistant Organisms: None Reported Past Surgical History: Bladder Surgery, Hernia Repair, Hysterectomy Additional Past Surgical History / Comment(s): INCISIONAL HERNIA , INGUINAL HERNIA X2 Past Anesthesia/Blood Transfusion Reactions: No Reported Reaction Past Psychological History: No Psychological Hx Reported Smoking Status: Never smoker Past Alcohol Use History: None Reported Past Drug Use History: None Reported - Past Family History Mother Family Medical History: Cancer Additional Family Medical History / Comment(s): LUNG CANCER Brother(s) Family Medical History: Cancer Medications and Allergies Home Medications Medication Instructions Recorded Confirmed Type Aspirin [Adult Low Dose Aspirin EC] 81 mg PO DAILY 03/23/18 12/25/19 History Furosemide [Lasix] 40 mg PO DAILY 03/23/18 12/25/19 History Latanoprost/Pf [Latanoprost 0.005% 1 drop BOTH EYES HS 03/23/18 12/25/19 History Eye Drop] Potassium Chloride [Klor-Con 10] 10 meq PO BID 03/23/18 12/25/19 History Simvastatin 40 mg PO 1800 03/23/18 12/25/19 History Ryne/D3/Mag11/Zinc/Milking Machine Technician/Andrea/Bor 1 each PO DAILY 10/26/18 12/25/19 History [Caltrate 600+D Plus Tablet] Cholecalciferol [Vitamin D3] 1,000 unit PO DAILY 10/26/18 12/25/19 History Metoprolol Succinate (ER) [Toprol 50 mg PO DAILY 12/25/19 12/25/19 History Xl] Vit C/E/Zn/Coppr/Lutein/Zeaxan 1 each PO DAILY 12/25/19 12/25/19 History [Preservision Areds 2 Softgel] Liraglutide [Victoza 2-Kamlesh] 1.8 mg SQ DAILY 12/26/19 12/26/19 History Allergies Allergy/AdvReac Type Severity Reaction Status Date / Time adhesive tape Allergy Rash/Hives Verified 12/25/19 12:50 Physical Exam Vitals: Vital Signs Temp Pulse Resp BP BP Pulse Ox 12/27/19 08:10 163/77 12/27/19 08:05 97.5 F L 88 20 210/106 92 L Intake and Output 12/26/19 12/27/19 12/27/19 22:59 06:59 14:59 Other: Weight 100 kg - Constitutional General appearance: disheveled, obese - EENT Eyes: PERRLA ENT: normal oropharynx Ears: bilateral: normal - Neck Neck: normal ROM Carotids: bilateral: upstroke normal Thyroid: bilateral: normal size - Respiratory Respiratory: right: diminished (Right base) - Cardiovascular Rhythm: regular Heart sounds: normal: S1, S2 - Gastrointestinal General gastrointestinal: normal bowel sounds - Neurologic Neurologic: CNII-XII intact - Musculoskeletal Musculoskeletal: gait normal, generalized weakness, strength equal bilaterally - Psychiatric Psychiatric: A&O x's 3, appropriate affect, intact judgment & insight Chronic lower extremity +1 edema Results - Laboratory Findings Abnormal lab findings: Abnormal Labs 12/27/19 08:15 POC Glucose (mg/dL) 152 H Assessment and Plan Assessment: Right-sided exudative pleural effusion hemorrhagic Right-sided loculation with loculated fluid Possible neoplasm primary versus secondary Elevated CA 125 Status post total abdominal hysterectomy Plan: Patient admitted for VATS lysis of bands and adhesions with pleural biopsy and drainage of residual pleural fluid Time with Patient: Greater than 30
[2019-12-27] MEDS ORDERED: PROPOFOL 10 MG/ML 20 ML VIAL IV ONE (09:34)
[2019-12-27] MEDS ORDERED: GLYCOPYRROLATE 0.2 MG/ML 2 ML VIAL ONE (09:34)
[2019-12-27] MEDS ORDERED: WATER FOR INJECTION, STERILE 10 ML VIAL IV ONE (09:34)
[2019-12-27] MEDS ORDERED: MIDAZOLAM 2 MG/2 ML VIAL ONE (09:34)
[2019-12-27] MEDS ORDERED: LIDOCAINE 1% INJ 10MG/ML (20 ML MDV) ONE (09:34)
[2019-12-27] MEDS ORDERED: NEOSTIGMINE 1 MG/ML 10 ML VIAL ONE (09:34)
[2019-12-27] MEDS ORDERED: SUCCINYLCHOLINE CHLORIDE 100 MG/5 ML SYR IV ONE (09:34)
[2019-12-27] MEDS ORDERED: ROCURONIUM BROMIDE 10 MG/ML 5 ML VIAL IV ONE (09:34)
[2019-12-27] MEDS ORDERED: fentaNYL (PF) 50 MCG/ML 2 ML AMP ONE (09:34)
[2019-12-27] MEDS ORDERED: ePHEDrine SULFATE/0.9% NACL/PF 50 MG/5 ML SYRINGE IV ONE (09:34)
[2019-12-27] MEDS ORDERED: BUPIVACAINE (PF) 0.5% 30 ML VIAL SQ ONE (10:06)
--- NOTE | 2019-12-27 10:40 | P.OP ---
Date of Procedure: 12/27/19 Preoperative Diagnosis: Persistent right posterior pleural effusion Postoperative Diagnosis: Same, loculated Procedure(s) Performed: Right thoracoscopic partial decortication Anesthesia: IRINAA Surgeon: Devonte Galaviz Estimated Blood Loss (ml): 10 IV fluids (ml): 800 Urine output (ml): 100 Pathology: other (Right pleural fluid, right pleural content both sent for cultures as well as pathology/cytology) Condition: stable Disposition: PACU Indications for Procedure: 69-year-old female with prior thoracentesis of a right pleural effusion. She never had complete reexpansion of the right lung. She has persistent loculated right posterior pleural effusion. Cytology initial initially was negative and the fluid was bloody. She was referred for evaluation. She is symptomatic with shortness of breath. Operative Findings: Right pleural space was fused with relatively filmy adhesions. There was a loculated right posterior basilar collection with a large amount of semisolid cottage cheeselike material present. There was also some tissue present which appeared to be old hematoma. Fluid was bloody. Localized complete decortication was accomplished. Description of Procedure: The patient was brought to the operating room, placed supine on the operating table, anesthetized and intubated with a double-lumen endotracheal tube. The endotracheal tube was positioned with bronchoscopic guidance. No endobronchial lesions were noted. Patient was turned in the left lateral decubitus position and the right chest was sterilely prepped and draped. 2 one-inch incisions were made fairly low at about the eighth or ninth interspace. One was in the midaxillary line and one was more posterior. Finger was inserted through the initial incision and loculations were broken up posteriorly. Fluid was suctioned out and collected. The thoracoscope was placed and we took down adhesions bluntly. The cottage cheeselike material was peeled off both the surface of the lung and the chest wall. On completion of the dissection the area was irrigated out with 100 mL of saline. A 28-Greenlandic chest tube was placed through separate stab incision and disposition posterior basally. Was connected to a Pleur-evac. Rib blocks were performed at the level of the incision. Half percent Marcaine was used. The lung was reinflated under thoracoscopic visualization. The incisions were closed with layers of Vicryl suture. Skin glue and dry sterile dressings were applied. Patient was turned supine and extubated and transferred to recovery in stable condition.
[2019-12-27] MEDS ORDERED: SODIUM CHLORIDE 0.9% 1,000 ML IV SCH (10:45)
[2019-12-27] MEDS: HYDROmorphone 0.5 MG/0.5 ML SYRINGE IVP PRN ×3 (11:20→13:27)
[2019-12-27 11:25] LABS: Glucose,Whole Blood 130 mg/dL (75-99)
--- NOTE | 2019-12-27 11:43 | XR ---
EXAMINATION TYPE: XR chest 1V portable DATE OF EXAM: 12/27/2019 COMPARISON: 12/25/2019 HISTORY: Shortness of breath TECHNIQUE: Single frontal view of the chest is obtained. FINDINGS: Bilateral consolidation and small right effusion with suggestion of an overlying chest tub e. No pneumothorax. Heart size stable. Atherosclerotic change aorta. Diffuse osteopenia and arthropat hy of the shoulders. Chronic rib cage deformity noted. IMPRESSION: 1. Stable right-sided consolidation and small effusion. 2. Stable left lower lobe infiltrate.
[2019-12-27] MEDS ORDERED: LACTATED RINGERS 1,000 ML IV ONE (12:35)
[2019-12-27 14:23] LABS: Appearance,BF Bloody; Color,BF Red; Nucleated Cells, Body Fluid 400 /uL; RBC, Body Fluid 853000 /uL
[2019-12-27 14:42] LABS: Mononuclear WBC,Body Fluid 89 %; Polynuclear WBC,Body Fluid 11 %; Total Cells Counted,Body Fluid 100
[2019-12-27] MEDS ORDERED: ACETAMINOPHEN TAB 500 MG TAB PO PRN (15:04)
[2019-12-27] MEDS ORDERED: IPRATROPIUM-ALBUTEROL 3 ML NEB IH PRN (15:04)
[2019-12-27] MEDS ORDERED: ONDANSETRON 4 MG/2 ML VIAL IVP PRN (15:04)
[2019-12-27] MEDS: HEPARIN SODIUM,PORCINE 5,000 UNIT/ML 1 ML VIAL SQ SCH ×2 (15:13→22:56)
[2019-12-27] MEDS: KETOROLAC 30 MG/ML 1 ML VIAL IVP SCH ×2 (15:13→22:57)
[2019-12-27 16:58] LABS: Glucose,Whole Blood 139 mg/dL (75-99)
--- NOTE | 2019-12-27 17:15 | P.CONS ---
History of Present Illness - Reason for Consult Pleural effusion - History of Present Illness 69-year-old pleasant female well-known to me from previous hospital admission at [facility] where she presented with right-sided pleural effusion, which was initially believed to be parapneumonic effusion's patient had 2 L of for fluid removed which was found to be exudative although cytology is negative for any cancer. Patient had post thoracentesis loculation. There was high suspicion of malignancy although there is no malignancy was admitted in all the imaging that was done including chest and abdominal CAT scans. Her CA-125 was elevated patient had history of hysterectomy. Patient was subsequently followed by robot programmer and cardiovascular thoracic surgery as an outpatient and elective VATS procedure was scheduled and patient underwent VATS procedure additional lysis biopsies were obtained and patient was subsequently admitted for observation on the medical floor. Patient is clinically doing well has significant pain in the surgical site area. Review of Systems REVIEW OF SYSTEMS: CONSTITUTIONAL: No fever, no malaise, no fatigue. HEENT: No recent visual problems or hearing problems. Denied any sore throat. CARDIOVASCULAR: No orthopnea, PND, no palpitations, no syncope. PULMONARY: No shortness of breath, no cough, no hemoptysis. GASTROINTESTINAL: No diarrhea, no nausea, no vomiting, no abdominal pain. NEUROLOGICAL: No headaches, no weakness, no numbness. HEMATOLOGICAL: Denies any bleeding or petechiae. GENITOURINARY: Denies any burning micturition, frequency, or urgency. MUSCULOSKELETAL/RHEUMATOLOGICAL: Denies any joint pain, swelling, or any muscle pain. ENDOCRINE: Denies any polyuria or polydipsia. The rest of the 14-point review of systems is negative. Past Medical History Past Medical History: Heart Failure, Diabetes Mellitus, Hyperlipidemia, Hypertension, Osteoarthritis (OA) Additional Past Medical History / Comment(s): Glaucoma, History of Any Multi-Drug Resistant Organisms: None Reported Past Surgical History: Bladder Surgery, Hernia Repair, Hysterectomy Additional Past Surgical History / Comment(s): INCISIONAL HERNIA , INGUINAL HERNIA X2 Past Anesthesia/Blood Transfusion Reactions: No Reported Reaction Past Psychological History: No Psychological Hx Reported Smoking Status: Never smoker Past Alcohol Use History: None Reported Past Drug Use History: None Reported - Past Family History Mother Family Medical History: Cancer Additional Family Medical History / Comment(s): LUNG CANCER Brother(s) Family Medical History: Cancer Medications and Allergies Home Medications Medication Instructions Recorded Confirmed Type Aspirin [Adult Low Dose Aspirin EC] 81 mg PO DAILY 03/23/18 12/25/19 History Furosemide [Lasix] 40 mg PO DAILY 03/23/18 12/25/19 History Latanoprost/Pf [Latanoprost 0.005% 1 drop BOTH EYES HS 03/23/18 12/25/19 History Eye Drop] Potassium Chloride [Klor-Con 10] 10 meq PO BID 03/23/18 12/25/19 History Simvastatin 40 mg PO 1800 03/23/18 12/25/19 History Ryne/D3/Mag11/Zinc/Senior Safety Management Consultant/Andrea/Bor 1 each PO DAILY 10/26/18 12/25/19 History [Caltrate 600+D Plus Tablet] Cholecalciferol [Vitamin D3] 1,000 unit PO DAILY 10/26/18 12/25/19 History Metoprolol Succinate (ER) [Toprol 50 mg PO DAILY 12/25/19 12/25/19 History Xl] Vit C/E/Zn/Coppr/Lutein/Zeaxan 1 each PO DAILY 12/25/19 12/25/19 History [Preservision Areds 2 Softgel] Liraglutide [Victoza 2-Kamlesh] 1.8 mg SQ DAILY 12/26/19 12/26/19 History Allergies Allergy/AdvReac Type Severity Reaction Status Date / Time adhesive tape Allergy Rash/Hives Verified 12/25/19 12:50 Physical Exam Vitals: Vital Signs Temp Pulse Pulse Pulse Resp BP BP 12/27/19 15:00 97.7 F 74 18 12/27/19 14:30 79 16 12/27/19 14:00 81 16 12/27/19 13:30 57 L 16 12/27/19 13:00 50 L 16 12/27/19 12:32 57 L 18 12/27/19 12:30 56 L 18 12/27/19 12:00 51 L 16 12/27/19 11:45 59 L 16 12/27/19 11:30 73 16 12/27/19 11:15 71 16 12/27/19 11:00 76 16 12/27/19 10:58 96.8 F L 79 16 12/27/19 08:10 163/77 12/27/19 08:05 97.5 F L 88 20 210/106 BP Pulse Ox 12/27/19 15:00 161/88 95 12/27/19 14:30 149/72 97 12/27/19 14:00 162/72 97 12/27/19 13:30 149/72 97 12/27/19 13:00 145/71 97 12/27/19 12:32 153/71 96 12/27/19 12:30 149/70 96 12/27/19 12:00 161/68 96 12/27/19 11:45 142/80 98 12/27/19 11:30 147/81 99 12/27/19 11:15 142/84 99 12/27/19 11:00 144/81 100 12/27/19 10:58 132/82 98 12/27/19 08:10 12/27/19 08:05 92 L Intake and Output 12/27/19 12/27/19 12/27/19 06:59 14:59 22:59 Intake Total 1350 Output Total 410 Balance 940 Intake: IV 1350 Output: Urine 300 Pleural Fluid 100 Estimated Blood Loss 10 Other: Weight 100 kg PHYSICAL EXAMINATION: GENERAL: The patient is alert and oriented x3, not in any acute distress. Well developed, well nourished. HEENT: Pupils are round and equally reacting to light. EOMI. No scleral icterus. No conjunctival pallor. Normocephalic, atraumatic. No pharyngeal erythema. No thyromegaly. CARDIOVASCULAR: S1 and S2 present. No murmurs, rubs, or gallops. PULMONARY: Chest is clear to auscultation, no wheezing or crackles. ABDOMEN: Soft, nontender, nondistended, normoactive bowel sounds. No palpable organomegaly. MUSCULOSKELETAL: No joint swelling or deformity. EXTREMITIES: No cyanosis, clubbing, or pedal edema. NEUROLOGICAL: Gross neurological examination did not reveal any focal deficits. SKIN: No rashes. Results Labs: Abnormal Lab Results - Last 24 Hours (Table) 12/27/19 12/27/19 12/27/19 Range/Units 08:15 11:23 16:56 POC Glucose (mg/dL) 152 H 130 H 139 H (75-99) mg/dL Microbiology - Last 24 Hours (Table) 12/27/19 10:34 Fungal Culture - Preliminary Pleural Fluid 12/27/19 10:34 Acid Fast Bacilli Culture - Preliminary Pleural Fluid 12/27/19 10:34 Anaerobic Culture - Preliminary Pleural Fluid 12/27/19 10:34 Body Fluid Culture - Preliminary Pleural Fluid 12/27/19 10:34 Tissue Culture - Preliminary Pleural Fluid 12/27/19 10:34 Anaerobic Culture - Preliminary Pleural Fluid Assessment and Plan Plan: - loculated right-sided exudative pleural effusion: Status post thoracentesis with removal of loculations and bloody fluid. Patient is on 2 L for comfort she may not require that the patient doesn't have any history of congestive heart failure she was sent the him on Lasix during her previous hospital because of the pleural effusion patient may not benefit from this Lasix which will be discontinued patient is presently receiving IV fluids at 50 mL/h -Hypertension -Hyperlipidemia -Type 2 diabetes mellitus: Patient will be 10 units sliding scale insulin patient is on Victoza at home which can be resumed upon discharge Gastroesophageal reflux disease For above-mentioned chronic medical problems patient will be resumed on appropriate home medications
[2019-12-27] MEDS: INSULIN ASPART (NovoLOG) 100 UNIT/ML VIAL SQ SCH ×3 (17:42→21:16)
[2019-12-27] MEDS: ATORVASTATIN 20 MG TAB PO SCH (17:42)
[2019-12-27] MEDS: POTASSIUM CHLORIDE ER 10 MEQ TAB.ER.PRT PO SCH (19:55)
[2019-12-27] MEDS: LATANOPROST 0.005% OPHTH DROPS 2.5 ML BTL BOTH EYES SCH (19:55)
[2019-12-27 20:28] LABS: Glucose,Whole Blood 149 mg/dL (75-99)
[2019-12-28] MEDS: traMADol 50 MG TAB PO PRN (04:21)
[2019-12-28] MEDS: PANTOPRAZOLE 40 MG TABLET PO SCH ×2 (05:59→08:46)
[2019-12-28] MEDS: KETOROLAC 30 MG/ML 1 ML VIAL IVP SCH ×4 (06:05→23:11)
[2019-12-28 06:13] LABS: Glucose,Whole Blood 162 mg/dL (75-99)
[2019-12-28] MEDS: INSULIN ASPART (NovoLOG) 100 UNIT/ML VIAL SQ SCH ×4 (06:22→20:19)
[2019-12-28 06:52] LABS: Basophils % (A) 0 %; Eosinophils # (A) 0.2 k/uL (0-0.7); Eosinophils % (A) 3 %; HCT 37.4 % (34.0-46.0); HGB 11.7 gm/dL (11.4-16.0); Lymphocytes # (A) 1.1 k/uL (1.0-4.8); Lymphocytes % (A) 19 %; MCH 30.6 pg (25.0-35.0); MCHC 31.3 g/dL (31.0-37.0); MCV 97.9 fL (80.0-100.0); Mean Platelet Volume 7.8; Monocytes # (A) 0.4 k/uL (0-1.0); Monocytes % (A) 7 %; Neutrophils # (A) 3.8 k/uL (1.3-7.7); Neutrophils % (A) 67 %; Platelet Count 216 k/uL (150-450); RBC 3.82 m/uL (3.80-5.40); RDW 14.3 % (11.5-15.5); WBC 5.6 k/uL (3.8-10.6)
[2019-12-28 07:14] LABS: African American GFR (CKD) >90 (>60 ml/min/1.73 sqM); Anion Gap 5 mmol/L; Blood Urea Nitrogen 9 mg/dL (7-17); Calcium 7.7 mg/dL (8.4-10.2); Carbon Dioxide 28 mmol/L (22-30); Chloride 103 mmol/L (98-107); Glucose 167 mg/dL (74-99); Non-African American GFR(CKD) 85 (>60 ml/min/1.73 sqM); Sodium 136 mmol/L (137-145)
--- NOTE | 2019-12-28 07:48 | P.PN ---
Subjective Progress Note Date: 12/28/19 Principal diagnosis: Persistent right posterior pleural effusion, loculated. Previous medical history of morbid obesity, diabetes mellitus, hypertension, hypercholesterolemia, coronary artery disease, and family history of lung cancer. POD #1 right thoracoscopic partial decortication. The patient's currently sitting up in the recliner in the cardiac stepdown unit in no acute distress. Denies any pain or shortness of breath. Actively using incentive spirometry. States she has been ambulatory to the bathroom. Right pleural chest tube present with thin serosanguineous drainage, no air leak present. No new concerns. Objective - Vital Signs Vital signs: Vital Signs Temp 97.8 F 12/28/19 03:35 Pulse 70 12/28/19 03:35 Resp 17 12/28/19 03:35 BP 110/55 12/28/19 03:35 Pulse Ox 98 12/28/19 03:35 Intake & Output 12/27/19 12/28/19 12/28/19 18:59 06:59 18:59 Intake Total 1450 250 Output Total 640 370 Balance 810 -120 Weight 100 kg 102 kg Intake: IV 1350 Intake, IV Titration 250 Amount Sodium Chloride 0.9% 1, 250 000 ml @ 50 mls/hr IV . Q20H [facility] Rx#:[id number] Oral 100 Output: Chest Tube Drainage 290 Right Upper Posterior 290 Chest Drainage 170 Right Chest 170 Urine 360 80 Pleural Fluid 100 Estimated Blood Loss 10 Other: # Voids 1 - Constitutional General appearance: Present: cooperative, no acute distress, obese - Respiratory Details: Lungs sounds diminished bilaterally, right greater than left. Respirations even, nonlabored. Currently on 2 L nasal cannula with oxygen saturation 97%. Able to achieve 1000 mL on incentive spirometry. Right pleural chest tube present to continuous wall suction, 350 mL thin serosanguineous drainage since surgery, no air leak present. Strong cough. - Cardiovascular Details: S1, S2 present. Regular rate and rhythm, sinus rhythm on telemetry with heart rate 73 bpm. Palpable peripheral pulses bilaterally. No edema present. No calf pain or tenderness noted. Antiembolism stockings, SCDs present. - Gastrointestinal Gastrointestinal Comment(s): abdomen soft, nontender, nondistended. Active bowel sounds present 4 quad rants. Tolerating diet. - Genitourinary Genitourinary Comment(s): voiding clear, yellow urine - Integumentary Integumentary Comment(s): skin is warm and dry with evidence of good perfusion. Right lateral thoracoscopy sites covered with dry intact dressings - Neurologic Neurologic: Present: CNII-XII intact - Musculoskeletal Musculoskeletal: Present: gait normal, strength equal bilaterally - Psychiatric Psychiatric: Present: A&O x's 3, appropriate affect, intact judgment & insight - Allied health notes Allied health notes reviewed: nursing - Labs CBC & Chem 7: 12/28/19 06:05 12/28/19 06:05 Labs: Abnormal Lab Results - Last 24 Hours (Table) 12/27/19 12/27/19 12/27/19 Range/Units 08:15 11:23 16:56 Sodium (137-145) mmol/L Glucose (74-99) mg/dL POC Glucose (mg/dL) 152 H 130 H 139 H (75-99) mg/dL Calcium (8.4-10.2) mg/dL 12/27/19 12/28/19 12/28/19 Range/Units 20:27 06:05 06:11 Sodium 136 L (137-145) mmol/L Glucose 167 H (74-99) mg/dL POC Glucose (mg/dL) 149 H 162 H (75-99) mg/dL Calcium 7.7 L (8.4-10.2) mg/dL Microbiology - Last 24 Hours (Table) 12/27/19 10:34 Acid Fast Bacilli Smear - Final Pleural Fluid Acid Fast Bacilli Culture - Preliminary 12/27/19 10:34 Gram Stain - Preliminary Pleural Fluid Body Fluid Culture - Preliminary 12/27/19 10:34 Gram Stain - Preliminary Pleural Fluid Tissue Culture - Preliminary 12/27/19 10:34 Fungal Culture - Preliminary Pleural Fluid 12/27/19 10:34 Anaerobic Culture - Preliminary Pleural Fluid 12/27/19 10:34 Anaerobic Culture - Preliminary Pleural Fluid - Imaging and Cardiology Chest x-ray: image reviewed Assessment and Plan Assessment: 1. Persistent right posterior pleural effusion, loculated, status post right thoracoscopic partial decortication 2. Morbid obesity 3. Diabetes mellitus 4. History of hypertension 5. History of hypercholesterolemia 6. History of coronary artery disease 7. Family history of lung cancer Plan: 1. Chest tube placed to waterseal. Will continue to monitor drainage, possible removal later today versus tomorrow morning. Chest x-ray in the a.m. Pathology pending 2. Wean O2 as tolerated, encourage incentive spirometry is 10 times every hour while awake 3. Increase activity, ambulate as tolerated 4. Pain controlled current medication regimen 5. Diabetic management per primary care service 6. More recommendations to follow based on patient's progress Time with Patient: Greater than 30
--- NOTE | 2019-12-28 08:12 | XR ---
EXAMINATION TYPE: XR chest 1V DATE OF EXAM: 12/28/2019 COMPARISON: Prior chest x-ray 12/27/2019 HISTORY: Status post VATS, chest tube TECHNIQUE: Single frontal view of the chest is obtained. FINDINGS: Right-sided chest tube remains in place, pleural-parenchymal changes are similar to prior exam. There is no evident pneumothorax. There are overlying cardiac leads. Heart size is stable. Aort a is dense. Old healed rib fractures again noted along the left chest margin. IMPRESSION: Essentially stable postoperative findings, residual basilar atelectatic change, difficul t to exclude small effusion.
[2019-12-28] MEDS: POTASSIUM CHLORIDE ER 10 MEQ TAB.ER.PRT PO SCH ×2 (08:45→20:14)
[2019-12-28] MEDS: HEPARIN SODIUM,PORCINE 5,000 UNIT/ML 1 ML VIAL SQ SCH ×3 (08:46→23:13)
[2019-12-28] MEDS: METOPROLOL SUCCINATE (ER) 50 MG TAB.ER.24H PO SCH (08:46)
[2019-12-28] MEDS: ASPIRIN 81 MG PO SCH (08:46)
[2019-12-28] MEDS: CHOLECALCIFEROL 1,000 UNIT TAB PO SCH (08:46)
[2019-12-28] MEDS ORDERED: FUROSEMIDE 40 MG TAB PO SCH (09:00)
--- NOTE | 2019-12-28 10:39 | P.PN ---
Subjective Progress Note Date: 12/28/19 Principal diagnosis: Right-sided exudative pleural effusion hemorrhagic Right-sided loculation with loculated fluid Possible neoplasm primary versus secondary Elevated CA 125 Status post total abdominal hysterectomy Status post a right partial videoscope thoroscopy and thoracotomy 12/28/2019, patient seen eval reexamined respiratory status has been stable denies any chest pain, patient has a right-sided chest tube, no air leak is present, minimal discomfort is present at the chest tube site incision, chest x- ray reviewed is stable postoperative changes along with the right basilar subsegmental atelectasis, no pneumothorax is seen patient likely had her chest tube removed later on today or tomorrow if remains stable can be discharged home from pulmonary standpoint with follow-up as outpatient Patient is a 69-year-old well-known to me with a remote history of smoking in the past patient was admitted initially at [facility] with the finding suggestive of the pneumonia along with large parapneumonic effusion on the right side, patient had the thoracentesis is an 2 L of fluid were removed, with appearance of hemorrhagic fluid, pleural fluid was exudative with negative cytology cultures were negative, subsequent ultrasound of the chest postth oracentesis revealed loculation on the right side bends moderate residual pleural effusion, patient other significant lab was elevated CEA 125, but she is status post total abdominal hysterectomy, due to loculated fluid on the light side had a high index of suspicion for neoplastic process patient is scheduled for thoracoscopic pleural biopsy with VATS procedure and lysis of loculation on the right side with removal of residual fluid Objective - Vital Signs Vital signs: Vital Signs Temp 97.8 F 12/28/19 03:35 Pulse 70 12/28/19 03:35 Resp 17 12/28/19 03:35 BP 110/55 12/28/19 03:35 Pulse Ox 98 12/28/19 03:35 Intake & Output 12/27/19 12/28/19 12/28/19 18:59 06:59 18:59 Intake Total 1450 250 480 Output Total 640 370 Balance 810 -120 480 Weight 100 kg 102 kg Intake: IV 1350 Intake, IV Titration 250 Amount Sodium Chloride 0.9% 1, 250 000 ml @ 50 mls/hr IV . Q20H [facility] Rx#:[id number] Oral 100 480 Output: Chest Tube Drainage 290 Right Upper Posterior 290 Chest Drainage 170 Right Chest 170 Urine 360 80 Pleural Fluid 100 Estimated Blood Loss 10 Other: # Voids 1 - Exam - Constitutional General appearance: disheveled, obese, sitting upright on the chair - EENT Eyes: PERRLA ENT: normal oropharynx Ears: bilateral: normal - Neck Neck: normal ROM Carotids: bilateral: upstroke normal Thyroid: bilateral: normal size - Respiratory Respiratory: right: diminished (Right base), right-sided chest tube connected with pleural VAC and suction some hemorrhagic pleural fluid is present no air leak - Cardiovascular Rhythm: regular Heart sounds: normal: S1, S2 - Gastrointestinal General gastrointestinal: normal bowel sounds - Neurologic Neurologic: CNII-XII intact - Musculoskeletal Musculoskeletal: gait normal, generalized weakness, strength equal bilaterally - Psychiatric Psychiatric: A&O x's 3, appropriate affect, intact judgment & insight Chronic lower extremity +1 edema - Labs CBC & Chem 7: 12/28/19 06:05 12/28/19 06:05 Labs: Abnormal Lab Results - Last 24 Hours (Table) 12/27/19 12/27/19 12/27/19 Range/Units 11:23 16:56 20:27 Sodium (137-145) mmol/L Glucose (74-99) mg/dL POC Glucose (mg/dL) 130 H 139 H 149 H (75-99) mg/dL Calcium (8.4-10.2) mg/dL 12/28/19 12/28/19 Range/Units 06:05 06:11 Sodium 136 L (137-145) mmol/L Glucose 167 H (74-99) mg/dL POC Glucose (mg/dL) 162 H (75-99) mg/dL Calcium 7.7 L (8.4-10.2) mg/dL Microbiology - Last 24 Hours (Table) 12/27/19 10:34 Gram Stain - Preliminary Pleural Fluid Body Fluid Culture - Preliminary 12/27/19 10:34 Gram Stain - Preliminary Pleural Fluid Tissue Culture - Preliminary 12/27/19 10:34 Acid Fast Bacilli Smear - Final Pleural Fluid Acid Fast Bacilli Culture - Preliminary 12/27/19 10:34 Fungal Culture - Preliminary Pleural Fluid 12/27/19 10:34 Anaerobic Culture - Preliminary Pleural Fluid 12/27/19 10:34 Anaerobic Culture - Preliminary Pleural Fluid Assessment and Plan Assessment: Right-sided exudative pleural effusion hemorrhagic Right-sided loculation with loculated fluid, a skid status post partial decortication and video thoracoscopic biopsy Possible neoplasm primary versus secondary Elevated CA 125 Status post total abdominal hysterectomy Plan: Patient can be discharged after removal of chest tube as per thoracic surgery will follow up as outpatient Time with Patient: Greater than 30
[2019-12-28] MEDS: PATIENT'S OWN MED (Liraglutide [Victoza 2-Pak] 1.8 MG) SQ SCH (10:47)
[2019-12-28 11:50] LABS: Glucose,Whole Blood 152 mg/dL (75-99)
--- NOTE | 2019-12-28 13:44 | P.PN ---
Subjective Progress Note Date: 12/28/19 Principal diagnosis: Right-sided exudative loculated pleural effusion hemorrhagic Possible neoplasm primary versus secondary Status post a right partial videoscope thoroscopy and thoracotomy Elevated CA 125 Status post total abdominal hysterectomy 12/28/2019, patient seen eval reexamined respiratory status has been stable denies any chest pain, patient has a right-sided chest tube, no air leak is present, minimal discomfort is present at the chest tube site incision, chest x-ray reviewed is stable postoperative changes along with the right basilar subsegmental atelectasis, no pneumothorax is seen patient likely had her chest tube removed later on today or tomorrow Objective - Vital Signs Vital signs: Vital Signs Temp 98.7 F 12/28/19 08:00 Pulse 72 12/28/19 08:00 Resp 18 12/28/19 08:00 BP 120/65 12/28/19 08:00 Pulse Ox 94 L 12/28/19 08:00 Intake & Output 12/27/19 12/28/19 12/28/19 18:59 06:59 18:59 Intake Total 1450 250 480 Output Total 640 370 Balance 810 -120 480 Weight 100 kg 102 kg Intake: IV 1350 Intake, IV Titration 250 Amount Sodium Chloride 0.9% 1, 250 000 ml @ 50 mls/hr IV . Q20H [facility] Rx#:[id number] Oral 100 480 Output: Chest Tube Drainage 290 Right Upper Posterior 290 Chest Drainage 170 Right Chest 170 Urine 360 80 Pleural Fluid 100 Estimated Blood Loss 10 Other: # Voids 1 - Exam GENERAL: The patient is alert and oriented x3, not in any acute distress. Well developed, well nourished. HEENT: Pupils are round and equally reacting to light. EOMI. No scleral icterus. No conjunctival pallor. Normocephalic, atraumatic. No pharyngeal erythema. No thyromegaly. CARDIOVASCULAR: S1 and S2 present. No murmurs, rubs, or gallops. PULMONARY: Chest is clear to auscultation, no wheezing or crackles. ABDOMEN: Soft, nontender, nondistended, normoactive bowel sounds. No palpable organomegaly. MUSCULOSKELETAL: No joint swelling or deformity. EXTREMITIES: No cyanosis, clubbing, or pedal edema. NEUROLOGICAL: Gross neurological examination did not reveal any focal deficits. SKIN: No rashes. - Labs CBC & Chem 7: 12/28/19 06:05 12/28/19 06:05 Labs: Abnormal Lab Results - Last 24 Hours (Table) 12/27/19 12/27/19 12/28/19 Range/Units 16:56 20:27 06:05 Sodium 136 L (137-145) mmol/L Glucose 167 H (74-99) mg/dL POC Glucose (mg/dL) 139 H 149 H (75-99) mg/dL Calcium 7.7 L (8.4-10.2) mg/dL 12/28/19 12/28/19 Range/Units 06:11 11:49 Sodium (137-145) mmol/L Glucose (74-99) mg/dL POC Glucose (mg/dL) 162 H 152 H (75-99) mg/dL Calcium (8.4-10.2) mg/dL Microbiology - Last 24 Hours (Table) 12/27/19 10:34 Gram Stain - Preliminary Pleural Fluid Body Fluid Culture - Preliminary 12/27/19 10:34 Gram Stain - Preliminary Pleural Fluid Tissue Culture - Preliminary 12/27/19 10:34 Acid Fast Bacilli Smear - Final Pleural Fluid Acid Fast Bacilli Culture - Preliminary 12/27/19 10:34 Fungal Culture - Preliminary Pleural Fluid 12/27/19 10:34 Anaerobic Culture - Preliminary Pleural Fluid 12/27/19 10:34 Anaerobic Culture - Preliminary Pleural Fluid Assessment and Plan Assessment: - loculated right-sided exudative pleural effusion: Status post thoracentesis with removal of loculations and bloody fluid. Patient is on 2 L for comfort she may not require that the patient doesn't have any history of congestive heart failure she was sent the him on Lasix during her previous hospital because of the pleural effusion patient may not benefit from this Lasix which will be discontinued patient is presently receiving IV fluids at 50 mL/h -Hypertension -Hyperlipidemia -Type 2 diabetes mellitus: Patient will be 10 units sliding scale insulin patient is on Victoza at home which can be resumed upon discharge Gastroesophageal reflux disease
[2019-12-28 17:12] LABS: Glucose,Whole Blood 148 mg/dL (75-99)
[2019-12-28] MEDS: ATORVASTATIN 20 MG TAB PO SCH (17:38)
[2019-12-28] MEDS: LATANOPROST 0.005% OPHTH DROPS 2.5 ML BTL BOTH EYES SCH (20:14)
[2019-12-28 20:17] LABS: Glucose,Whole Blood 243 mg/dL (75-99)
[2019-12-29] MEDS: traMADol 50 MG TAB PO PRN (04:46)
[2019-12-29 06:08] LABS: Glucose,Whole Blood 159 mg/dL (75-99)
[2019-12-29] MEDS: INSULIN ASPART (NovoLOG) 100 UNIT/ML VIAL SQ SCH ×4 (06:20→21:44)
[2019-12-29] MEDS: PANTOPRAZOLE 40 MG TABLET PO SCH (06:20)
[2019-12-29] MEDS: KETOROLAC 30 MG/ML 1 ML VIAL IVP SCH ×4 (06:21→23:38)
--- NOTE | 2019-12-29 06:27 | XR ---
EXAMINATION TYPE: XR chest 1V portable DATE OF EXAM: 12/29/2019 HISTORY: post vats. REFERENCE: Previous study dated 12/28/2019. FINDINGS: Right-sided chest tube remains in place. I see no evidence of pneumothorax. There is right basilar airspace disease. There is a small right effusion. The heart is mildly enlarged. The left kusum g is clear. IMPRESSION: NO SIGNIFICANT INTERVAL CHANGE IN THE APPEARANCE OF THE CHEST.
--- NOTE | 2019-12-29 09:09 | P.PN ---
Subjective Progress Note Date: 12/29/19 Principal diagnosis: Persistent right posterior pleural effusion, loculated. Previous medical history of morbid obesity, diabetes mellitus, hypertension, hypercholesterolemia, coronary artery disease, and family history of lung cancer. POD #2 right thoracoscopic partial decortication. The patient's currently sitting up in the recliner in the cardiac stepdown unit in no acute distress. Denies any pain or shortness of breath. Actively using incentive spirometry. States she has been ambulatory in her room. Right pleural chest tube present with thin serosanguineous drainage, no air leak present. No new concerns. Objective - Vital Signs Vital signs: Vital Signs Temp 98 F 12/29/19 04:00 Pulse 65 12/29/19 04:00 Resp 16 12/29/19 04:00 BP 123/58 12/29/19 04:00 Pulse Ox 96 12/29/19 04:00 Intake & Output 12/28/19 12/29/19 12/29/19 18:59 06:59 18:59 Intake Total 480 240 240 Output Total 200 342 Balance 280 -102 240 Weight 100.5 kg Intake: Oral 480 240 240 Output: Chest Tube Drainage 42 Right Upper Posterior 42 Chest Urine 200 300 - Constitutional General appearance: Present: cooperative, no acute distress, obese - Respiratory Details: Lungs sounds diminished bilaterally, right greater than left. Respirations even, nonlabored. Currently on room air with oxygen saturation 96%. Able to achieve 1000 mL on incentive spirometry. Right pleural chest tube present to continuous wall suction, 42 mL of thin serosanguineous drainage overnight, 88 mL in the last 24 hours, no air leak present. Strong cough. - Cardiovascular Details: S1, S2 present. Regular rate and rhythm, sinus bradycardia to sinus rhythm on telemetry with heart rate 57 bpm. Palpable peripheral pulses bilaterally. No edema present. No calf pain or tenderness noted. Antiembolism stockings, SCDs present. - Gastrointestinal Gastrointestinal Comment(s): Abdomen soft, nontender, nondistended. Active bowel sounds present 4 quadrants. Tolerating diet. - Genitourinary Genitourinary Comment(s): voiding clear, yellow urine - Integumentary Integumentary Comment(s): skin is warm and dry with evidence of good perfusion. Right lateral thoracoscopy sites covered with dry intact dressings - Neurologic Neurologic: Present: CNII-XII intact - Musculoskeletal Musculoskeletal: Present: gait normal, strength equal bilaterally - Psychiatric Psychiatric: Present: A&O x's 3, appropriate affect, intact judgment & insight - Allied health notes Allied health notes reviewed: nursing - Labs CBC & Chem 7: 12/28/19 06:05 12/28/19 06:05 Labs: Abnormal Lab Results - Last 24 Hours (Table) 12/28/19 12/28/19 12/28/19 Range/Units 11:49 17:11 20:16 POC Glucose (mg/dL) 152 H 148 H 243 H (75-99) mg/dL 12/29/19 Range/Units 06:07 POC Glucose (mg/dL) 159 H (75-99) mg/dL Microbiology - Last 24 Hours (Table) 12/27/19 10:34 Gram Stain - Preliminary Pleural Fluid Body Fluid Culture - Preliminary 12/27/19 10:34 Gram Stain - Preliminary Pleural Fluid Tissue Culture - Preliminary - Imaging and Cardiology Chest x-ray: report reviewed, image reviewed Assessment and Plan Assessment: 1. Persistent right posterior pleural effusion, loculated, status post right thoracoscopic partial decortication 2. Morbid obesity 3. Diabetes mellitus 4. History of hypertension 5. History of hypercholesterolemia 6. History of coronary artery disease 7. Family history of lung cancer Plan: 1. Will discontinue chest tube. Chest x-ray in the a.m. Pathology pending 2. Encourage incentive spirometry is 10 times every hour while awake 3. Increase activity, ambulate as tolerated. May remove suction for ambulation 4. Pain controlled current medication regimen 5. Diabetic management per primary care service 6. More recommendations to follow based on patient's progress Time with Patient: Greater than 30
[2019-12-29] MEDS: POTASSIUM CHLORIDE ER 10 MEQ TAB.ER.PRT PO SCH ×2 (09:39→21:45)
[2019-12-29] MEDS: METOPROLOL SUCCINATE (ER) 50 MG TAB.ER.24H PO SCH (09:39)
[2019-12-29] MEDS: CHOLECALCIFEROL 1,000 UNIT TAB PO SCH (09:39)
[2019-12-29] MEDS: ASPIRIN 81 MG PO SCH (09:39)
[2019-12-29] MEDS: HEPARIN SODIUM,PORCINE 5,000 UNIT/ML 1 ML VIAL SQ SCH ×3 (09:39→23:33)
[2019-12-29] MEDS: PATIENT'S OWN MED (Liraglutide [Victoza 2-Pak] 1.8 MG) SQ SCH (09:41)
[2019-12-29 12:08] LABS: Glucose,Whole Blood 146 mg/dL (75-99)
--- NOTE | 2019-12-29 15:42 | P.PN ---
Subjective Progress Note Date: 12/29/19 Principal diagnosis: Right-sided exudative loculated pleural effusion hemorrhagic Possible neoplasm primary versus secondary Status post a right partial videoscope thoroscopy and thoracotomy Elevated CA 125 Status post total abdominal hysterectomy 12/28/2019, patient seen eval reexamined respiratory status has been stable denies any chest pain, patient has a right-sided chest tube, no air leak is present, minimal discomfort is present at the chest tube site incision, chest x-ray reviewed is stable postoperative changes along with the right basilar subsegmental atelectasis, no pneumothorax is seen patient likely had her chest tube removed later on today or tomorrow 12/29/2019 Patient is status post chest tube removal for loculated right posterior pleural effusion and POD #2 for right thoracoscopic partial decortication Patient denies any worsening of shortness of breath post chest tube removal; she is recommending to increase activity and actively continue using incentive spirometry; patient will have repeat chest x-ray tomorrow morning if possible discharge if remains stable Objective - Vital Signs Vital signs: Vital Signs Temp 97.7 F 12/29/19 08:00 Pulse 56 L 12/29/19 08:00 Resp 18 12/29/19 08:00 BP 114/58 12/29/19 08:00 Pulse Ox 96 12/29/19 08:00 Intake & Output 12/28/19 12/29/19 12/29/19 18:59 06:59 18:59 Intake Total 480 240 240 Output Total 200 342 Balance 280 -102 240 Weight 100.5 kg Intake: Oral 480 240 240 Output: Chest Tube Drainage 42 Right Upper Posterior 42 Chest Urine 200 300 - Exam GENERAL: The patient is alert and oriented x3, not in any acute distress. Well developed, well nourished. HEENT: Pupils are round and equally reacting to light. EOMI. No scleral icterus. No conjunctival pallor. Normocephalic, atraumatic. No pharyngeal erythema. No thyromegaly. CARDIOVASCULAR: S1 and S2 present. No murmurs, rubs, or gallops. PULMONARY: Chest is clear to auscultation, no wheezing or crackles. ABDOMEN: Soft, nontender, nondistended, normoactive bowel sounds. No palpable organomegaly. MUSCULOSKELETAL: No joint swelling or deformity. EXTREMITIES: No cyanosis, clubbing, or pedal edema. NEUROLOGICAL: Gross neurological examination did not reveal any focal deficits. SKIN: No rashes. - Labs CBC & Chem 7: 12/28/19 06:05 12/28/19 06:05 Labs: Abnormal Lab Results - Last 24 Hours (Table) 12/28/19 12/28/19 12/29/19 Range/Units 17:11 20:16 06:07 POC Glucose (mg/dL) 148 H 243 H 159 H (75-99) mg/dL 12/29/19 Range/Units 12:07 POC Glucose (mg/dL) 146 H (75-99) mg/dL Microbiology - Last 24 Hours (Table) 12/27/19 10:34 Anaerobic Culture - Preliminary Pleural Fluid 12/27/19 10:34 Gram Stain - Preliminary Pleural Fluid Body Fluid Culture - Preliminary 12/27/19 10:34 Gram Stain - Preliminary Pleural Fluid Tissue Culture - Preliminary 12/27/19 10:34 Anaerobic Culture - Preliminary Pleural Fluid Assessment and Plan Assessment: - loculated right-sided exudative pleural effusion: Status post thoracentesis with removal of loculations and bloody fluid. Patient is on 2 L for comfort she may not require that the patient doesn't have any history of congestive heart failure she was sent the him on Lasix during her previous hospital because of the pleural effusion patient may not benefit from this Lasix which will be discontinued patient is presently receiving IV fluids at 50 mL/h -Hypertension -Hyperlipidemia -Type 2 diabetes mellitus: Patient will be 10 units sliding scale insulin patient is on Victoza at home which can be resumed upon discharge Gastroesophageal reflux disease
[2019-12-29 17:10] LABS: Glucose,Whole Blood 175 mg/dL (75-99)
[2019-12-29] MEDS: ATORVASTATIN 20 MG TAB PO SCH (18:56)
[2019-12-29 20:25] LABS: Glucose,Whole Blood 211 mg/dL (75-99)
[2019-12-29] MEDS: LATANOPROST 0.005% OPHTH DROPS 2.5 ML BTL BOTH EYES SCH (21:43)
[2019-12-30 01:46] VITALS: RESP 18
[2019-12-30 06:17] LABS: Glucose,Whole Blood 184 mg/dL (75-99)
[2019-12-30] MEDS: KETOROLAC 30 MG/ML 1 ML VIAL IVP SCH ×2 (06:36→12:44)
[2019-12-30] MEDS: INSULIN ASPART (NovoLOG) 100 UNIT/ML VIAL SQ SCH ×2 (06:36→12:44)
[2019-12-30] MEDS: PANTOPRAZOLE 40 MG TABLET PO SCH (06:36)
--- NOTE | 2019-12-30 08:15 | XR ---
EXAMINATION TYPE: XR chest 2V DATE OF EXAM: 12/30/2019 HISTORY: pleural effusion. REFERENCE: Previous study dated 12/29/2019. FINDINGS: Lung volumes are prominent. The heart is mildly enlarged. There is patchy right-sided airsp ubaldo disease. This may have improved slightly. There is a small right effusion. IMPRESSION: THERE IS, PERHAPS, SLIGHT IMPROVEMENT IN THE AERATION OF THE RIGHT LUNG.
[2019-12-30] MEDS: POTASSIUM CHLORIDE ER 10 MEQ TAB.ER.PRT PO SCH (08:40)
[2019-12-30] MEDS: METOPROLOL SUCCINATE (ER) 50 MG TAB.ER.24H PO SCH (08:40)
[2019-12-30] MEDS: CHOLECALCIFEROL 1,000 UNIT TAB PO SCH (08:40)
[2019-12-30] MEDS: ASPIRIN 81 MG PO SCH (08:40)
[2019-12-30] MEDS: HEPARIN SODIUM,PORCINE 5,000 UNIT/ML 1 ML VIAL SQ SCH (08:41)
--- NOTE | 2019-12-30 09:05 | P.DS ---
Providers Date of admission: 12/27/19 07:31 Expected date of discharge: 12/30/19 Attending physician: Devonte Galaviz Consults: 12/27/19 15:04 Consult Physician Routine Consulting Provider: Brayden Parra Consult Reason/Comments: pulm management Do you want consulting provider notified?: Yes Consult Physician Routine Consulting Provider: Kriss Butler Consult Reason/Comments: medical management; [facility] patient Do you want consulting provider notified?: Yes Primary care physician: Ana Gunn Hospital Course: FINAL DIAGNOSIS: 1. Persistent right posterior pleural effusion, loculated 2. Morbid obesity 3. Diabetes mellitus 4. History of hypertension 5. History of hypercholesterolemia 6. History of coronary artery disease 7. Family history of lung cancer PRINCIPAL PROCEDURE: 1. Right thoracoscopic partial decortication HISTORY OF PRESENT ILLNESS: This is a 69-year-old female who follows on an outpatient basis with Dr. Gunn for primary care and Dr. Parra for pulmonology. She initially presented to the hospital in early November with shortness of breath and was found to have a right-sided pleural effusion, she underwent thoracentesis. Following this, she had a CT scan which demonstrated persistent right pleural effusion with atelectasis and infiltration of the right lung. Thoracentesis fluid was negative for cytology and workup revealed no evidence of malignancy. CEA 125 was elevated however. The patient was symptomatically improved and was discharged home. Repeat CT scan was performed December 11 which demonstrate a persistent right pleural effusion with persistent infiltrate and atelectasis in the right lung, particularly in the right lower lobe. The patient was referred to Dr. Galaviz from cardiothoracic surgery for thoracoscopy for diagnosis and therapeutics. The usual perioperative course was discussed in detail with the patient and her family, all risks and benefits were explained, all questions were answered, and consent was obtained to proceed with surgery. Patient was scheduled for surgery at the earliest possible date. HOSPITAL COURSE: The patient was brought to the hospital on 12/27/2019, taken to the preoperative area, prepared in the usual fashion, and subsequently taken to the operating room where Dr. Galaviz performed a right thoracoscopic partial decortication. Upon completion of surgery the patient was extubated and taken to the recovery room where she continued to be monitored hemodynamically. She was eventually admitted to 3 self cardiac stepdown unit where she continued to recover uneventfully. She had serial chest x-rays and on the morning of postop day #2 her chest x-ray was found to be satisfactory, she had minimal drainage from her right pleural chest tube, and the chest tube was discontinued without incident. Repeat x-ray the following morning was stable. Her oxygen was titrated down, she was tolerating oral diet, her pain was controlled, and she was ready to be discharged to home on postoperative day #3. She received written and verbal instruction regarding her medications, activity restrictions, signs and symptoms requiring physician notification, and follow-up appointments. COMPLICATIONS: The patient experienced no postoperative complications. Patient Condition at Discharge: Stable Plan - Discharge Summary Discharge Rx Participant: Yes New Discharge Prescriptions: New Acetaminophen Tab [Tylenol] 1,000 mg PO Q6HR PRN tab PRN Reason: Fever And/ Or Pain Continue Latanoprost/Pf [Latanoprost 0.005% Eye Drop] 1 drop BOTH EYES HS Furosemide [Lasix] 40 mg PO DAILY Simvastatin 40 mg PO 1800 Potassium Chloride [Klor-Con 10] 10 meq PO BID Aspirin [Adult Low Dose Aspirin EC] 81 mg PO DAILY Cholecalciferol [Vitamin D3 (25 Mcg = 1000 Iu)] 1,000 unit PO DAILY Ryne/D3/Mag11/Zinc/Carpet Layer Helper/Andrea/Bor [Caltrate 600+D Plus Tablet] 1 each PO DAILY Vit C/E/Zn/Coppr/Lutein/Zeaxan [Preservision Areds 2 Softgel] 1 each PO DAILY Liraglutide [Victoza 2-Kamlesh] 1.8 mg SQ DAILY Metoprolol Succinate (ER) [Toprol XL] 50 mg PO DAILY #30 tab Discharge Medication List Aspirin [Adult Low Dose Aspirin EC] 81 mg PO DAILY 03/23/18 [History] Furosemide [Lasix] 40 mg PO DAILY 03/23/18 [History] Latanoprost/Pf [Latanoprost 0.005% Eye Drop] 1 drop BOTH EYES HS 03/23/18 [History] Potassium Chloride [Klor-Con 10] 10 meq PO BID 03/23/18 [History] Simvastatin 40 mg PO 1800 03/23/18 [History] Ryne/D3/Mag11/Zinc/Carpet Layer Helper/Andrea/Bor [Caltrate 600+D Plus Tablet] 1 each PO DAILY 10/26/18 [History] Cholecalciferol [Vitamin D3 (25 Mcg = 1000 Iu)] 1,000 unit PO DAILY 10/26/18 [History] Vit C/E/Zn/Coppr/Lutein/Zeaxan [Preservision Areds 2 Softgel] 1 each PO DAILY 12/25/19 [History] Liraglutide [Victoza 2-Kamlesh] 1.8 mg SQ DAILY 12/26/19 [History] Acetaminophen Tab [Tylenol] 1,000 mg PO Q6HR PRN tab 12/30/19 [Rx] Metoprolol Succinate (ER) [Toprol XL] 50 mg PO DAILY #30 tab 12/30/19 [Rx] Follow up Appointment(s)/Referral(s): Devonte Galaviz MD [STAFF PHYSICIAN] - 01/10/20 10:15 am (office will call the day before to confirm appointment) Brayden Parra MD [STAFF PHYSICIAN] - 01/07/20 11:45 am (Will be tele-medicine appointment) Ana Gunn MD [Primary Care Provider] - 1 Week Activity/Diet/Wound Care/Special Instructions: DISCHARGE INSTRUCTIONS: 1. No driving for 2 weeks, or until physician gives their ok. 2. No lifting, pushing, or pulling more than 10 pounds for 2 weeks. The physician will advise of any restriction changes. 3. Continue pain control per as needed orders. Alternate acetaminophen (Tylenol) and ibuprofen (Motrin/Advil) for pain. 4. Continue with incentive spirometry and splinting until otherwise directed by the physician. 5. Leave chest tube dressing for 48 hours. After that, remove all dressings and shower daily. 6. Routine incision care. No powders, lotions, ointments on incisions. 7. Please call surgeon/FARM OPERATIONS MANAGER for temp greater than 101 F or purulent drainage from incisions. 8. Smoking cessation counseling and program information provided. For any questions or concerns please don't hesitate to contact Wendy FARM OPERATIONS MANAGER at or Ashok FARM OPERATIONS MANAGER at Discharge Disposition: HOME SELF-CARE
[2019-12-30 09:53] VITALS: BP 142/65; PULSE 96; TEMP 98
[2019-12-30 12:16] LABS: Glucose,Whole Blood 148 mg/dL (75-99)
--- NOTE | 2020-01-01 13:30 | CDI ---
Documentation Clarification Form Date: 01/01/20 From: Velvet Marquis Phone: If you have a question about this query, please contact Susie Alexis, Slasher Tender Helper at [phone] between 8am and 5pm. Admit Date: 12/27/19 Discharge Date: 12/30/19 Patient Name: SHANELL RADFORD Visit Number: [id number] ATTENTION: The Clinical Documentation Specialists (CDI) and [facility] Coding Staff appreciate your assistance in clarifying documentation. Please respond to the clarification below the line at the bottom and electronically sign. The CDI & [facility] Coding staff will review the response and follow-up if needed. Please note: Queries are made part of the Legal Health Record. If you have any questions, please contact the author of this message via ITS. Dear Dr. Devonte Galaviz, The final diagnosis of the pathology report states: RIGHT PLEURAL TISSUE: Necrotic neoplasm highly suspicious for mesothelioma. Documentation states: CEA 125 elevated. Persistent right posterior pleural effusion. Patient history/risk factors: DM w glaucoma, morbid obesity, HTN, hyperlipidemia, GERD, hypercholesterolemia, CAD, OA Treatment: Right thoracoscopic partial decortication In your professional opinion, do you agree with the pathology report specifying right pleural tissue probable mesothelioma? Yes No Other (please specify) Unable to determine yes MTDD
== END 2019-12-30 13:30 | disposition home or self-care (01) | DRG 164 ==
LOC: 2ORMAIN 07:31 → 3SCARD 13:50
PROVIDERS: ADMIT Thoracic Surgery (Cardiothoracic Vascular Surgery); ATTEND Thoracic Surgery (Cardiothoracic Vascular Surgery)
PROC: 0W9930Z Drainage of Right Pleural Cavity with Drainage Device, Percutaneous Approach (ICD-10-PCS; principal; 2019-12-27 08:55)
PROC: 0BNK4ZZ Release Right Lung, Percutaneous Endoscopic Approach (ICD-10-PCS; principal; 2019-12-27 08:55)
DX: C45.0 Mesothelioma of pleura (principal); J98.11 Atelectasis; E11.39 Type 2 diabetes mellitus with other diabetic ophthalmic complication; E66.01 Morbid (severe) obesity due to excess calories; I10 Essential (primary) hypertension; E78.5 Hyperlipidemia, unspecified; K21.9 Gastro-esophageal reflux disease without esophagitis; E78.00 Pure hypercholesterolemia, unspecified; H40.9 Unspecified glaucoma; H42 Glaucoma in diseases classified elsewhere; R97.1 Elevated cancer antigen 125 [CA 125]; I25.10 Atherosclerotic heart disease of native coronary artery without angina pectoris; M19.90 Unspecified osteoarthritis, unspecified site; Z68.38 Body mass index [BMI] 38.0-38.9, adult; Z79.82 Long term (current) use of aspirin; Z79.84 Long term (current) use of oral hypoglycemic drugs; Z79.899 Other long term (current) drug therapy; Z71.6 Tobacco abuse counseling; Z98.890 Other specified postprocedural states; Z90.710 Acquired absence of both cervix and uterus; Z87.891 Personal history of nicotine dependence; Z91.011 Allergy to milk products; Z91.048 Other nonmedicinal substance allergy status; Z80.1 Family history of malignant neoplasm of trachea, bronchus and lung; Z81.2 Family history of tobacco abuse and dependence; Z80.6 Family history of leukemia
CPT/HCPCS: 36415; 71045; 71046; 80048; 80051; 81003; 82565; 82947; 84520; 85025; 85610; 85730; 86850; 86900; 86901; 87070; 87075; 87077; 87086; 87102; 87116; 87186; 87205; 87206; 88108; 88305; 88341; 88342; 89050; 93005

== ENCOUNTER → 2020-01-18 | Outpatient (CLI) | payer MEDICARE ==
--- NOTE | 2020-01-18 12:29 | PE ---
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 Localization and attenuation correction CT scan was performed. Correlation to chest CT 12/12/2019 from outside institution Neck and chest: There is abnormal increased attenuation at the right lung base which likely correspon ds to patient's mesothelioma, there is some associated mild uptake at this level. There is no mediast inal, axillary, or hilar adenopathy. There is no additional lung mass. No additional suspicious hyper metabolic uptake. No cervical or supraclavicular adenopathy. There are coronary artery calcifications , mitral annular calcification. ABDOMEN: No suspicious uptake. Calcified gallstone is noted incidentally. No evident liver mass or ad renal mass. No retroperitoneal adenopathy. Bowel uptake is likely physiologic. Osseous structures show scoliotic curvature to the cervical spine. IMPRESSION: Only mild uptake associated with the patient's posterior basilar right lower lobe and ple ural abnormality is noted on prior CT.
== END | disposition home or self-care (01) ==
LOC: RADPETMAIN 07:27
PROVIDERS: ATTEND Internal Medicine Sleep Medicine
DX: R91.8 Other nonspecific abnormal finding of lung field (principal); C45.7 Mesothelioma of other sites
CPT/HCPCS: 78815; A9552

== ENCOUNTER → 2020-05-02 | Outpatient (CLI) | payer MEDICARE ==
--- NOTE | 2020-05-06 10:59 | MM ---
Reason for exam: screening (asymptomatic). Last mammogram was performed 1 year ago. History: Patient is postmenopausal and history of other cancer. Family history of breast cancer in paternal aunt. Benign MG stereo VAD BX addl LT of the left breast, May 04, 2018. Benign MG stereo VAD BX addl RT of the right breast, May 04, 2018. Benign MG stereo VAD BX RT of the right breast, May 04, 2018. Benign stereotactic core biopsy of the right breast, November 06, 2001. Benign stereotactic core biopsy of the right breast, October 17, 2000. 2 core biopsies of the right breast. Physical Findings: A clinical breast exam by your physician is recommended on an annual basis and results should be correlated with mammographic findings. MG 3D Screening Mammo W/Cad Bilateral CC, MLO, and XCCL view(s) were taken. Prior study comparison: April 30, 2019, bilateral MG 3d diag mammo w/cad KRISTINE. October 20, 2018, bilateral MG 3d diag mammo w/cad KRSITINE. There are scattered fibroglandular densities. There is chronic nodularity in the left breast anteriorly and laterally on the CC view. Extensive dystrophic, fat necrosis and oil cyst calcifications on the right. Lesser degree of calcifications on the left. No significant changes when compared with prior studies. ASSESSMENT: Benign, BI-RAD 2 RECOMMENDATION: Routine screening mammogram of both breasts in 1 year.
== END | disposition home or self-care (01) ==
LOC: RADMAMWWP 07:52
PROVIDERS: ATTEND Surgery
DX: Z12.31 Encounter for screening mammogram for malignant neoplasm of breast (principal)
CPT/HCPCS: 77063; 77067

== ENCOUNTER → 2020-05-15 | Outpatient (CLI) | payer MEDICARE ==
[2020-05-15 15:50] VITALS: BP 135/86; PULSE 86; RESP 18; TEMP 97.8
--- NOTE | 2020-05-15 15:52 | P.PN ---
Subjective Progress Note Date: 05/15/20 Principal diagnosis: fibrocystic lung disease María is a 69-year-old white female status post bilateral breast stereotactic core biopsies in April 2018. All 3 sites were consistent with fat necros. She is presently undergoing chemotherapy for lung cancer. She has 1 more chemotherapy treatment, her third treatment was May 08. She is being treated for mesothelioma. They are planning to do surgery within the next 2 months. A bilateral mammogram performed on , this was benign BIRADS 2. Does not feel any lumps masses or nodules in her breasts for which she is concerned. Caffeine: Several times a week Nicotine: She does not smoke, and is no longer exposed to secondhand smoke Theophylline: Occasional Family History: 1. Mother: Lung cancer 2: Brother: Leukemia 3: Paternal aunt: Breast cancer at about 50 4. maternal grandfather: stomach cancer 5. paternal grandfather: stomach cancer Past medical history: Osteoarthritis Diabetes Glaucoma Hypertension High cholesterol Hiatal hernia Duodenal ulcer disease Past history of migraines mesothelioma Past surgical history: 1. 3 hernias 2. Hysterectomy 3. Fracture right leg 4. chips removed left ankle Social history: Smoke: Negative Alcohol: Negative Drugs: Negative Review of systems: HEENT: Tinnitus, wears glasses Lungs: Mesothelioma Heart: Congestive heart failure GI: Ulcer disease : Negative Musculoskeletal: Arthritis neuroogic: right leg weak Psychiatric: Negative hematologic: baby aspirin Objective - Exam BMI 41.7 - Constitutional General appearance: Present: obese - EENT Eyes: Present: EOMI ENT: Present: hearing grossly normal - Neck Neck: Present: normal ROM - Respiratory Respiratory: bilateral: CTA - Cardiovascular Rhythm: regular Heart sounds: normal: S1, S2 - Gastrointestinal General gastrointestinal: Present: soft - Integumentary Integumentary: Present: normal turgor - Musculoskeletal Musculoskeletal Comment(s): uses a walker - Psychiatric Psychiatric: Present: A&O x's 3 - Additional findings Additional findings: breast exam: BRA: 38D inspection: Bilateral grade 3 ptosis, intermittent right nipple inversion Palpation: Right breast: Multiple positional exam fibrocystic breast changes, no dominant masses or nodules of concern Right axilla: No adenopathy of concern Left breast: Multiple positional exam fibrocystic changes, no dominant masses or nodules of concern Left axilla: No adenopathy of concern Assessment and Plan Assessment: Impression: 1. Fibrocystic breast changes 2. Intermittent right nipple inversion 3. Mesothelioma presently on chemotherapy 4. Osteoarthritis 5. Diabetes 6. Glaucoma 7. Hypertension 8. High cholesterol 9. Hiatal hernia 10. Duodenal ulcer disease 11. Past history of migraines 12. obesity Plan: 1. bilateral mammogram in 1 year 2. follow up in one year CC: DR. Gunn encounter 15 mnutes, > 50 % of time on planning and counselling
== END | disposition home or self-care (01) ==
LOC: WWCWWP 15:05
PROVIDERS: ATTEND Surgery
DX: Z53.9 Procedure and treatment not carried out, unspecified reason (principal)